=== PATIENT | female | born 1960 | race Caucasian/White ===

== ENCOUNTER 2016-12-09 00:45 | Inpatient (IN) | payer MEDICARE, MEDICAID ==
[2016-12-09 01:16] VITALS: BMI 30.2
--- NOTE | 2016-12-09 01:31 | ED PDOC ---
Arrival/HPI - General Chief Complaint: Flu-like Symptoms Time Seen by Provider: 12/09/16 01:23 Historian: Patient - History of Present Illness Narrative History of Present Illness (Text): 12/09/16 01:31 Jessica Cerrato is a 56 year old female, whose past medical history includes hypertension, hyperlipidemia, asthma, diabetes, seizures, and hepatic cirrhosis , who presents to the Emergency department complaining of fever since yesterday. Patient states yesterday she began coughing with generalized malaise and diffuse body aches. Patient states she had took her temperature at home and noted a fever of 100.8. Patient states she took Tylenol at home but denies any significant relief. Patient denies any chest pain, nausea, vomiting, diarrhea, urinary symptoms, back pain, neck pain, headache, dizziness, or any other complaints. PMD: Dr. Radha Starkey Time/Duration: Other (yesterday) Symptom Onset: Gradual Symptom Course: Unchanged Activities at Onset: Rest, Light Context: Home Past Medical History - Provider Review Nursing Documentation Reviewed: Yes - Cardiac Hx Hypertension: Yes - Pulmonary Hx Asthma: Yes - Neurological Hx Seizures: Yes - HEENT Hx HEENT Disorder: Yes (wears glasses) - Endocrine/Metabolic Hx Diabetes Mellitus Type 2: Yes - Hematological/Oncological Hx Cirrhosis: Yes (1976) Hx Hepatitis C: Yes (from blood transfusion x4 1976) Other/Comment: in 1976 appendix burst causing peritonitis, pt received 4 blood transfusions and developed hepatitis c from the blood, which caused cirrhosis - Musculoskeletal/Rheumatological Hx Falls: No - Gastrointestinal Hx Pancreatitis: Yes (2 yrs ago) - Psychiatric Hx Anxiety: Yes Hx Depression: Yes Hx Substance Use: No - Surgical History Hx Appendectomy: Yes (1976) Hx Cholecystectomy: Yes (1979) Other/Comment: 1982 1/2 fallopian tube removed and 1 ovary - Anesthesia Hx Anesthesia: Yes Hx Anesthesia Reactions: No Hx Malignant Hyperthermia: No - Suicidal Assessment Feels Threatened In Home Enviroment: No Family/Social History - Physician Review Nursing Documentation Reviewed: Yes Family/Social History: No Known Family HX Smoking Status: Never Smoked Hx Alcohol Use: No Hx Substance Use: No Hx Substance Use Treatment: No Allergies/Home Meds Allergies/Adverse Reactions: Allergies aspirin Allergy (Verified 12/09/16 01:17) ANAPHYLAXIS prochlorperazine [From Compazine] Allergy (Verified 12/09/16 01:17) ANAPHYLAXIS Home Medications: Home Meds Medication Instructions Recorded Confirmed LORazepam [Ativan] 0.5 mg PO PRN PRN 10/23/14 12/09/16 Lactobacillus Acidophilus [Bacid 1 cap PO DAILY 10/23/14 12/09/16 Acidophilus] Lisinopril [Lisinopril] 5 mg PO DAILY 10/23/14 12/09/16 Montelukast Sodium [Singulair] 10 mg PO DAILY 10/23/14 12/09/16 Morphine Patch 10/23/14 10/23/14 Omeprazole [PrilOSEC] 40 mg PO DAILY 10/23/14 12/09/16 Oxycodone HCl/Acetaminophen 1 tab PO Q6H PRN 10/23/14 12/09/16 [Percocet 325 mg-5 mg] Spironolactone [Aldactone] 12.5 mg PO DAILY 10/23/14 12/09/16 amLODIPine [Norvasc] 5 mg PO DAILY 10/23/14 12/09/16 Review of Systems - Physician Review All systems were reviewed & negative as marked: Yes - Review of Systems Constitutional: Fevers Eyes: Normal ENT: Normal Respiratory: Cough Cardiovascular: Normal. absent: Chest Pain Gastrointestinal: Normal. absent: Abdominal Pain, Diarrhea, Nausea, Vomiting Genitourinary Female: Normal. absent: Dysuria, Frequency, Hematuria, Urine Output Changes Musculoskeletal: Normal. absent: Back Pain, Neck Pain Skin: Normal. absent: Rash Neurological: Normal. absent: Headache, Dizziness Endocrine: Normal Hemo/Lymphatic: Normal Psychiatric: Normal Physical Exam Vital Signs Reviewed: Yes Vital Signs Temp Pulse Resp BP Pulse Ox 12/09/16 05:57 98.8 F 91 H 18 124/82 95 12/09/16 04:00 89 18 131/58 L 95 12/09/16 01:21 100.2 F H 92 H 16 140/81 95 Temperature: Febrile Blood Pressure: Normal Pulse: Regular Respiratory Rate: Normal Appearance: Positive for: Well-Appearing, Non-Toxic, Comfortable Pain Distress: None Mental Status: Positive for: Alert and Oriented X 3 - Systems Exam Head: Present: Atraumatic, Normocephalic Pupils: Present: PERRL Extroacular Muscles: Present: EOMI Conjunctiva: Present: Normal Mouth: Present: Moist Mucous Membranes Neck: Present: Normal Range of Motion Respiratory/Chest: Present: Wheezes. No: Respiratory Distress, Accessory Muscle Use Cardiovascular: Present: Regular Rate and Rhythm, Normal S1, S2. No: Murmurs Abdomen: Present: Normal Bowel Sounds. No: Tenderness, Distention, Peritoneal Signs Back: Present: Normal Inspection Upper Extremity: Present: Normal Inspection. No: Cyanosis, Edema Lower Extremity: Present: Normal Inspection. No: Edema Neurological: Present: GCS=15, CN II-XII Intact, Speech Normal Skin: Present: Warm, Dry, Normal Color. No: Rashes Psychiatric: Present: Alert, Oriented x 3, Normal Insight, Normal Concentration Medical Decision Making ED Course and Treatment: 12/09/16 01:31 Impression: 56 year old female complaining of fever, cough, generalized malaise, and body aches. Differential Diagnosis include but are not limited to: asthmatic bronchitis Plan: -- EKG -- Chest X-ray -- Labs, cardiac enzymes, BNP, VBG, blood cultures -- Urinalysis -- Duoneb -- Reassess and disposition Prior Visits: Notes and results from previous visits were reviewed. Progress Notes: Reviewed EKG, NSR at [address]-segment elevations or depressions, no T-wave inversions, normal intervals. 12/09/16 01:45 Reviewed radiology, Chest X-ray shows no active disease. 12/09/16 04:[address] Ndiaye, covering for Dr. Starkey, who is aware and agrees with plan. Pt will go to Telemetry observation for asthmatic bronchitis under Dr. Starkey's service. Pt is no acute distress. Discussed results and hospital observation plan with pt , who is aware and verbalizes understanding. - Lab Interpretations Lab Results: 12/09/16 02:16 12/09/16 02:16 Lab Results 12/09/16 11:07: POC Glucose (mg/dL) 326 H 12/09/16 07:24: POC Glucose (mg/dL) 151 H 12/09/16 02:16: Urine Color Yellow, Urine Appearance Clear, Urine pH 6.0, Ur Specific [place] 1.020, Urine Protein Negative, Urine Glucose (UA) Negative, Urine Ketones Negative, Urine Blood Trace-intact H, Urine Nitrate Negative, Urine Bilirubin Negative, Urine Urobilinogen 0.2, Ur Leukocyte Esterase Negative , Urine RBC 1 - 3, Urine WBC 0 - 2, Ur Epithelial Cells 0 - 2, Urine Bacteria Mod 12/09/16 02:16: Sodium 134, Chloride 99, Potassium 4.6, Carbon Dioxide 26, Anion Gap 14, BUN 20, Creatinine 0.9, Est GFR ( Amer) > 60, Est GFR (Non- Af Amer) > 60, Random Glucose 193 H, Calcium 8.6, Total Bilirubin 2.2 H, AST 34 , ALT 40, Alkaline Phosphatase 97, Lactate Dehydrogenase 390, Total Creatine Kinase 42, Troponin I < 0.01, NT-Pro-B Natriuret Pep 69.0, Total Protein 8.1, Albumin 3.5, Globulin 4.6, Albumin/Globulin Ratio 0.8 L 12/09/16 02:16: pO2 187 H, VBG pH 7.40, VBG pCO2 43.0, VBG HCO3 26.6, VBG Total CO2 27.9, VBG O2 Sat (Calc) 99.8 H, VBG Base Excess 1.5, VBG Potassium 4.5, Sodium 132.0, Chloride 104.0, Glucose 199 H, Lactate 1.4, FiO2 21.0, Venous Blood Potassium 4.5 12/09/16 02:16: WBC 11.4 H D, RBC 4.62, Hgb 10.3 L, Hct 31.6 L, MCV 68.4 L, MCH 22.3 L, MCHC 32.6, RDW 15.9 H, Plt Count 54 L, Manual Plt Count 71 L*, Neutrophils % (Manual) 82 H, Band Neutrophils % 4 H, Lymphocytes % (Manual) 9 L , Monocytes % (Manual) 4, Eosinophils % (Manual) 1, Platelet Evaluation Low I have reviewed the lab results: Yes - RAD Interpretation Radiology Orders: 12/09/16 01:37 CHEST PORTABLE [RAD] Stat - EKG Interpretation Interpreted by ED Physician: Yes Type: 12 lead EKG - Medication Orders Current Medication Orders: Acetaminophen (Tylenol 325mg Tab) 650 mg PO Q4H PRN PRN Reason: Fever >100.5 F Albuterol/Ipratropium (Duoneb 3 Mg/0.5 Mg (3 Ml) Ud) 3 ml IH Q4H PRN PRN Reason: Shortness of Breath Last Admin: 12/09/16 07:44 Dose: 3 ml Albuterol/Ipratropium (Duoneb 3 Mg/0.5 Mg (3 Ml) Ud) 3 ml IH TIDRESP [facility] Last Admin: 12/09/16 13:00 Dose: 3 ml Amlodipine Besylate (Norvasc) 5 mg PO DAILY [facility] Last Admin: 12/09/16 10:29 Dose: 5 mg Insulin Human Regular (Humulin R Low) 0 units SC ACHS ANGELIQUE PRN Reason: Protocol Last Admin: 12/09/16 16:37 Dose: 4 units Levofloxacin (Levaquin) 500 mg PO DAILY [facility] Lisinopril (Zestril) 5 mg PO DAILY [facility] Last Admin: 12/09/16 10:31 Dose: 5 mg Methylprednisolone (Solu-Medrol) 40 mg IVP Q12 [facility] Last Admin: 12/09/16 10:29 Dose: 40 mg Montelukast Sodium (Singulair) 10 mg PO DAILY [facility] Last Admin: 12/09/16 10:31 Dose: 10 mg Oxycodone/Acetaminophen (Percocet 5/325 Mg Tab) 1 tab PO Q6H PRN PRN Reason: Pain, severe (8-10) Stop: 12/12/16 08:42 Spironolactone (Aldactone) 12.5 mg PO DAILY [facility] Last Admin: 12/09/16 10:30 Dose: 12.5 mg Discontinued Medications Acetaminophen (Tylenol 325mg Tab) 650 mg PO STAT STA Stop: 12/09/16 04:34 Last Admin: 12/09/16 05:25 Dose: 650 mg Albuterol/Ipratropium (Duoneb 3 Mg/0.5 Mg (3 Ml) Ud) 3 ml IH Q15M ANGELIQUE Stop: 12/09/16 02:16 Last Admin: 12/09/16 02:35 Dose: 3 ml Levofloxacin/Dextrose (Levaquin 750mg) 750 mg in 150 mls @ 100 mls/hr IVPB STAT STA Stop: 12/09/16 05:35 Last Admin: 12/09/16 04:32 Dose: 100 mls/hr Methylprednisolone (Solu-Medrol) 125 mg IVP ONCE ONE Stop: 12/09/16 04:34 Last Admin: 12/09/16 05:25 Dose: 125 mg - Scribe Statement The provider has reviewed the documentation as recorded by the Padmini Hernandez Provider Attestation: All medical record entries made by the Padmini were at my direction and personally dictated by me. I have reviewed the chart and agree that the record accurately reflects my personal performance of the history, physical exam, medical decision making, and the department course for this patient. I have also personally directed, reviewed, and agree with the discharge instructions and disposition. Disposition/Present on Arrival - Present on Arrival Any Indicators Present on Arrival: No History of DVT/PE: No History of Uncontrolled Diabetes: Yes Urinary Catheter: No History of Decub. Ulcer: No History Surgical Site Infection Following: None - Disposition Have Diagnosis and Disposition been Completed?: Yes Diagnosis: Asthmatic bronchitis Disposition: HOSPITALIZED Disposition Time: 04:10 Condition: GOOD
[2016-12-09] MEDS: Albuterol-Ipratrop 3 mg / 0.5 (3 ml) UD IH SCH ×5 (02:16→20:23)
[2016-12-09 02:36] LABS: VENOUS BLOOD GAS BASE EXCESS 1.5 mmol/L (0.0-2.0)
[2016-12-09 02:40] LABS: URINE BILIRUBIN NEGATIVE (NEGATIVE); URINE BLOOD TRACE-INTACT (NEGATIVE); URINE GLUCOSE (UA) NEGATIVE (NEGATIVE); URINE KETONE NEGATIVE (NEGATIVE); URINE LEUKOCYTE ESTERASE NEGATIVE Leu/uL (NEGATIVE); URINE PROTEIN NEGATIVE mg/dL (<30 mg/dL); URINE UROBILINOGEN 0.2 E.U./dL (<1 E.U./dL)
[2016-12-09 02:43] LABS: ALB/GLOB RATIO 0.8 (1.1-1.8); ALKALINE PHOSPHATASE 97 U/L (38-133); ALT/SGPT 40 U/L (7-56); AST/SGOT 34 U/L (15-39); BILIRUBIN,TOTAL 2.2 mg/dL (0.2-1.3); BLOOD UREA NITROGEN 20 mg/dL (7-21); CALCIUM 8.6 mg/dL (8.4-10.5); CARBON DIOXIDE 26 mmol/L (21-33); CHLORIDE 99 mmol/L (98-107); GFR AFRICAN-AMERICAN > 60; GLUCOSE,RANDOM 193 mg/dL (70-110); POTASSIUM 4.6 mmol/L (3.6-5.0); SODIUM 134 mmol/L (132-148); TOTAL PROTEIN 8.1 g/dL (5.8-8.3)
[2016-12-09 02:44] LABS: URINE APPEARANCE CLEAR (CLEAR); URINE COLOR YELLOW (YELLOW)
[2016-12-09 02:46] LABS: HEMATOCRIT 31.6 % (36.0-48.0); MEAN CELL VOLUME 68.4 fL (80.0-105.0); MEAN CORPUSCULAR HEMOGLOBIN 22.3 pg (25.0-35.0); MEAN CORPUSCULAR HGB CONC 32.6 g/dl (31.0-37.0); PLATELET COUNT 54 10^3/uL (120.0-450.0); RED CELL DISTRIBUTION WIDTH 15.9 % (11.5-14.5); WHITE BLOOD COUNT 11.4 10^3/ul (4.5-11.0)
[2016-12-09 02:50] LABS: ADD MANUAL DIFF? YES
[2016-12-09 02:55] LABS: TROPONIN I < 0.01 ng/mL
[2016-12-09 03:03] LABS: URINE BACTERIA MOD (NEG); URINE EPITHELIAL CELLS 0 - 2 /hpf (0-5); URINE WBC 0 - 2 /hpf (0-6)
[2016-12-09 03:49] LABS: BAND 4 % (0-2); EOSINOPHIL 1 % (0.0-3.0); NEUTROPHIL 82 % (50.0-70.0); PLATELET ESTIMATE LOW (NORMAL)
[2016-12-09] MEDS ORDERED: levoFLOXacin 750 mg in D5W 750 MG/150 ML BAG IVPB STA (04:06)
[2016-12-09] MEDS ORDERED: Albuterol-Ipratrop 3 mg / 0.5 (3 ml) UD IH PRN (06:05)
[2016-12-09] MEDS: Insulin Reg-LOW-Coverage SC SCH ×4 (08:23→21:47)
[2016-12-09] MEDS ORDERED: Oxycodone/Acetaminophen 5/325 mg Tab PO PRN (08:41)
[2016-12-09] MEDS: MethylPREDNISolone 40 mg Vial IVP SCH ×2 (10:29→21:47)
--- NOTE | 2016-12-09 15:07 | RAD ---
HISTORY: sob COMPARISON: Comparison chest 10/23/2014 FINDINGS: LUNGS: Poor inspiration with low lung volumes, mild crowded bronchovascular markings and mild bibasilar atelectasis. PLEURA: No significant pleural effusion identified, no pneumothorax apparent. CARDIOVASCULAR: Normal. OSSEOUS STRUCTURES: No significant abnormalities. VISUALIZED UPPER ABDOMEN: Normal. OTHER FINDINGS: None. IMPRESSION: Poor inspiration with low lung volumes, mild crowded bronchovascular markings and mild bibasilar atelectasis.
--- NOTE | 2016-12-09 19:31 | HP ---
CHIEF COMPLAINT AND HISTORY OF PRESENT ILLNESS: This is a 56-year-old female who is coming into the hospital because of cough and congestion. She was having shortness of breath. She says she is havin g difficulty breathing even though she is using her nebulizer treatments. She has a past medical his tory of hypertension, dyslipidemia, diabetes type 2, seizure disorder, hepatic cirrhosis. The patien t was complaining of fevers that started yesterday. She said that at home, her temperature was 100.8 . She is taking Tylenol. She denies any abdominal pain, no back pain, no dysuria, frequency, or noc turia. No weakness in the arms or the legs. REVIEW OF SYSTEMS: All other review of symptoms are within normal limits except as mentioned. ALLERGIES: ASPIRIN AND PROCHLORPERAZINE. HOME MEDICATIONS: Ativan, lactobacillus, lisinopril, Singulair, morphine, Prilosec, Percocet, Aldact one, amlodipine. PAST MEDICAL HISTORY: 1. Cirrhosis. 2. Hepatitis C. 3. Pancreatitis. 4. Anxiety. 5. Depression. 6. Dyslipidemia. 7. Hypertension. PAST SURGICAL HISTORY: 1. Ovary removal in 1982. 2. Cholecystectomy in 1979. 3. Appendectomy in 1976. SOCIAL HISTORY: She is single, lives with her family. FAMILY HISTORY: Noncontributory. PHYSICAL EXAMINATION: VITAL SIGNS: She has a temperature of 99, pulse of 94, blood pressure is 146/74, respiration is 20, O2 saturation 98%, height is 5 feet 1 inch, weight is 160 pounds, BMI is 30.2. GENERAL: Patient lying in bed, flat, and in no apparent distress. HEAD AND NECK EXAM: Atraumatic, normocephalic. Conjunctivae are pink. Throat clear and mouth with moist mucosa. Oropharynx benign. EYES: Extraocular movements are intact. PERRLA. NECK: Supple. No JVD, thyromegaly, or adenopathy. No bruits. HEART: S1 and S2 regular rate and rhythm. No murmurs, rubs, or gallops. LUNGS: Good bilateral air entry. Mild bilateral wheezing. No rales or rhonchi. ABDOMEN: Soft, nontender, nondistended. Bowel sounds are positive in all quadrants. No rebound. No hepatosplenomegaly. EXTREMITIES: No cyanosis, clubbing, or edema. NEURO: No facial asymmetry, tongue is midline, no uvula deviation. Power is 5/5 in upper extremity and 5/5 in lower extremity. Sensation is normal in upper extremity and lower extremity. PSYCH: Awake, alert, oriented x3. No anxiety or depression symptoms. Good insight. Normal affec t. : No CVA tenderness VASCULAR: 2+ pulses in carotid and pedal pulses. SKIN: No erythema or abnormal nodules noted. SPINE: Normal curvature. LYMPHADENOPATHY: No anterior cervical or posterior cervical adenopathy. No inguinal adenopathy. LABORATORY DATA: White count is 11.4, hemoglobin is 10.3, platelet count is 54. ABG shows a pH of 7.4, pCO2 is 43, bicarb is 26. Urine shows protein is negative, glucose is negative. Chest x-ray showed poor inspiration with low lung volumes, bibasilar atelectasis. EKG shows sinus rhythm at 91, no ST-T changes. ASSESSMENT: 1. Acute chronic obstructive pulmonary disease exacerbation. 2. Bronchitis. 3. Hypertension. 4. Dyslipidemia. 5. Chronic obstructive pulmonary disease. 6. Anxiety. 7. Hepatitis C. 8. Cirrhosis. 9. Chronic thrombocytopenia. PLAN: The patient is going to be admitted to the hospital. She is short of breath. She is going to be getting nebulizer treatments. She has been started on antibiotics with Levaquin. She is going t o be on steroids. The patient is on lisinopril for hypertension and is going to be on Tylenol as nee ded. She is on a carbohydrate consistent diet. I did speak to the patient's . Eran Ndiaye MD cc: [phone] TT: 12/09/2016 19:30:42 wy
--- NOTE | 2016-12-09 22:09 | CARD ---
APPROVED REPORT EKG Measurement Heart [id number] <Conclusion> Normal sinus rhythm Normal ECG
[2016-12-10] MEDS: Albuterol-Ipratrop 3 mg / 0.5 (3 ml) UD IH SCH ×3 (08:03→20:16)
[2016-12-10] MEDS: Insulin Reg-LOW-Coverage SC SCH ×4 (08:18→21:43)
[2016-12-10 08:32] LABS: HEMATOCRIT 30.5 % (36.0-48.0); MEAN CELL VOLUME 67.3 fL (80.0-105.0); MEAN CORPUSCULAR HEMOGLOBIN 22.3 pg (25.0-35.0); MEAN CORPUSCULAR HGB CONC 33.1 g/dl (31.0-37.0); PLATELET COUNT 46 10^3/uL (120.0-450.0); RED CELL DISTRIBUTION WIDTH 15.6 % (11.5-14.5)
[2016-12-10 08:40] LABS: ALB/GLOB RATIO 0.7 (1.1-1.8); ALKALINE PHOSPHATASE 95 U/L (38-133); ALT/SGPT 35 U/L (7-56); AST/SGOT 27 U/L (15-39); BILIRUBIN,TOTAL 1.1 mg/dL (0.2-1.3); BLOOD UREA NITROGEN 37 mg/dL (7-21); CALCIUM 8.4 mg/dL (8.4-10.5); CARBON DIOXIDE 25 mmol/L (21-33); CHLORIDE 94 mmol/L (98-107); GFR AFRICAN-AMERICAN > 60; POTASSIUM 4.9 mmol/L (3.6-5.0); SODIUM 128 mmol/L (132-148)
[2016-12-10 08:45] LABS: GLUCOSE,RANDOM 383 mg/dL (70-110)
[2016-12-10] MEDS: MethylPREDNISolone 40 mg Vial IVP SCH ×2 (10:08→21:29)
[2016-12-10] MEDS: levoFLOXacin 500 MG TAB PO SCH (10:09)
--- NOTE | 2016-12-10 12:59 | PN ---
DATE: 12/10/2016 SUBJECTIVE: The patient is a 56-year-old, seen and examined sitting in chair. She states for almost a week she is having cough, congestion and unable to catch breath, feeling funny in the chest. She was initially admitted in ICU, was on IV steroids and nebulizer treatment, doing well, and transferre d to TCU for further management. PAST MEDICAL HISTORY: Significant for: 1. Cirrhosis of liver. 2. Hepatitis C. 3. Pancreatitis. 4. Hypertension. 5. Hyperlipidemia. PHYSICAL EXAMINATION: GENERAL: She is awake and alert, communicative, mild shortness of breath. VITAL SIGNS: Afebrile, pulse 79, respirations 18, blood pressure 128/64. LUNGS: Bilateral fair airflow. No rhonchi or crackle except a few expiratory rhonchi; no other etio logy seen. HEART: S1, S2 audible. ABDOMEN: Soft, nontender, no rebound, no guarding. NEUROLOGIC: The patient is awake and alert, communicative, ambulatory. EXTREMITIES: Bilateral legs, no edema. LABORATORY EXAMINATION: WBC is 10, hemoglobin 10.1, hematocrit 30.5, platelet of 46. Chemistry: So dium 128, potassium 4.9, chloride 94, CO2 of 25, BUN 37, creatinine 1.9, blood sugar of 430. Urinaly sis is unremarkable. Blood cultures are negative. X-ray of the chest shows poor inspiration with lo wer lung volumes, mild crowded bronchovascular marking in mid ____ area. ASSESSMENT: 1. Chronic obstructive pulmonary disease exacerbation. 2. Hepatitis C. 3. Cirrhosis of liver. 4. History of hypertension. 5. Insulin-dependent diabetes. PLAN: Currently, the patient is on Aldactone nebulizer treatment. She is on Levaquin. She is getti ng Norvasc. She is on IV steroid; will cut down on that. Continue nebulizer treatment. I will orde r for CT scan of the chest to receive further details of her lung parenchyma. Will reevaluate ryan hannah in the a.m. Matheus Starkey MD cc: [phone] TT: 12/10/2016 12:58:35 Confirmation # [id number] Dictation # [id number] mn
--- NOTE | 2016-12-10 14:31 | CT ---
PROCEDURE: CT Chest without contrast HISTORY: increased chest markings COMPARISON: None. TECHNIQUE: Contiguous axial images were obtained through the chest without intravenous contrast enhancement. Sagittal and coronal reconstructions were performed. Radiation dose (DLP): 660 mGy-cm. This CT exam was performed using one or more of the following dose reduction techniques: Automated exposure control, adjustment of the mA and/or kV according to patient size, and/or use of iterative reconstruction technique. FINDINGS: LUNGS: Ground-glass interstitial infiltrates are seen in both lung bases. There is no alveolar consolidation. There is no nodule or mass MEDIASTINUM: Unremarkable thoracic aorta. No aneurysm. Normal sized heart. Main pulmonary artery unremarkable. No vascular congestion. No lymphadenopathy. PLEURA: No pleural fluid. No pneumothorax. BONES: No fracture. No destructive lesion. UPPER ABDOMEN: Cirrhosis with splenomegaly OTHER FINDINGS: None. IMPRESSION: Minimal ground-glass interstitial infiltrates of both lung bases. Findings could represent interstitial pneumonia
[2016-12-11 07:39] LABS: HEMATOCRIT 29.8 % (36.0-48.0); MEAN CORPUSCULAR HEMOGLOBIN 21.8 pg (25.0-35.0); MEAN CORPUSCULAR HGB CONC 32.6 g/dl (31.0-37.0); PLATELET COUNT 56 10^3/uL (120.0-450.0); RED CELL DISTRIBUTION WIDTH 15.7 % (11.5-14.5); WHITE BLOOD COUNT 5.5 10^3/ul (4.5-11.0)
[2016-12-11 07:52] LABS: ALB/GLOB RATIO 0.7 (1.1-1.8); ALKALINE PHOSPHATASE 85 U/L (38-133); ALT/SGPT 34 U/L (7-56); AST/SGOT 23 U/L (15-39); BILIRUBIN,TOTAL 0.6 mg/dL (0.2-1.3); BLOOD UREA NITROGEN 39 mg/dL (7-21); CALCIUM 8.6 mg/dL (8.4-10.5); CARBON DIOXIDE 26 mmol/L (21-33); CHLORIDE 97 mmol/L (95-110); GFR AFRICAN-AMERICAN > 60; POTASSIUM 4.8 mmol/L (3.6-5.0); SODIUM 129 mmol/L (132-148); TOTAL PROTEIN 7.5 g/dL (5.8-8.3)
[2016-12-11 08:05] LABS: GLUCOSE,RANDOM 346 mg/dL (70-110)
[2016-12-11] MEDS: Albuterol-Ipratrop 3 mg / 0.5 (3 ml) UD IH SCH ×3 (08:18→19:36)
[2016-12-11] MEDS: Insulin Reg-LOW-Coverage SC SCH ×2 (08:27→12:26)
[2016-12-11] MEDS: levoFLOXacin 500 MG TAB PO SCH (09:53)
[2016-12-11] MEDS: cefTRIAXone 1 gm 1 GM/100 ML BAG IVPB SCH (09:54)
[2016-12-11] MEDS: MethylPREDNISolone 40 mg Vial IVP SCH ×2 (09:54→21:19)
[2016-12-11] MEDS ORDERED: Promethazine/Cod 6.25mg-10mg/5ml Syr UD PO PRN (12:35)
--- NOTE | 2016-12-11 12:48 | PN ---
DATE: 12/11/2016 The patient is 56 years old, seen and examined. She still has cough and congestion. States chest hu rts when she coughs a lot. Denies any nausea. No abdominal pain. PHYSICAL EXAMINATION: VITAL SIGNS: She is afebrile, pulse 79, respirations 20, blood pressure 117/63. LUNGS: Bilateral few expiratory rhonchi. HEART: S1, S2 audible. ABDOMEN: Soft, nontender, no rebound, no guarding. NEUROLOGIC: She is awake and alert, communicative. LABORATORY EXAMINATION: WBC is 5.5, hemoglobin 9.7, hematocrit 29, platelets of 56. Chemistry: Sod ium 129, potassium 4.8, chloride 97, CO2 of 26, BUN 39, creatinine 0.9, blood sugar of 342. Blood cu ltures are negative. CT scan of the chest shows minimal ground glass interstitial infiltrate of both lung bases consistent with interstitial pneumonia. ASSESSMENT AND PLAN: 1. History of hepatitis C. 2. Cirrhosis liver. 3. Bilateral basilar interstitial infiltrate. 4. Bronchospasm with asthmatic bronchitis. PLAN: The patient is currently on spironolactone, nebulizer treatment. Blood sugar is being monitor ed. I will start patient on Phenergan with codeine. I will discontinue Levaquin. Start her on Zith romax with Rocephin. Continue her on nebulizer treatment and I will request for TCU evaluation for s low taper down since she is diabetic. We will need to monitor her blood sugar while she is on predni sone and we will taper down prednisone according to patient's response. Since she still has bronchos pasm, she will benefit from going to TCU for close observation. Matheus Starkey MD cc: [phone] TT: 12/11/2016 12:47:40 Confirmation # [id number] Dictation # [id number] sn
[2016-12-11] MEDS: Insulin Reg-HIGH-Coverage SC SCH ×2 (19:52→21:19)
[2016-12-12] MEDS: Albuterol-Ipratrop 3 mg / 0.5 (3 ml) UD IH SCH ×2 (07:55→13:39)
[2016-12-12] MEDS: Insulin Reg-HIGH-Coverage SC SCH ×3 (08:27→17:53)
[2016-12-12] MEDS ORDERED: Azithromycin 500MG/NS 250ml 500 MG/250 ML BAG IVPB SCH (10:00)
[2016-12-12 10:16] VITALS: RESP 20
[2016-12-12] MEDS: cefTRIAXone 1 gm 1 GM/100 ML BAG IVPB SCH (11:05)
[2016-12-12] MEDS: MethylPREDNISolone 40 mg Vial IVP SCH (11:06)
[2016-12-12 19:33] VITALS: BP 134/70; PULSE 88; TEMP 98.6; O2SAT 98
[2016-12-12] MEDS ORDERED: Levalbuterol 1.25 MG/3 ML Inhal Soln UD IH SCH (20:00)
[2016-12-12] MEDS ORDERED: Insulin Lispro (HUMAlog) HIGH Coverage SC SCH (22:00)
--- NOTE | 2016-12-12 23:34 | DS ---
HISTORY OF PRESENT ILLNESS: The patient is a 56-year-old seen and examined. Still complaining of cou gh, congestion, wheezing on minimal exertion. PHYSICAL EXAMINATION: VITAL SIGNS: He is afebrile, pulse 70, respirations 20, and blood pressure 124/75. LUNGS: Bilateral, few expiratory rhonchi. HEART: S1, S2 audible. ABDOMEN: Soft, nontender, no rebound, no guarding. NEUROLOGIC: The patient is awake and alert, communicative, ambulatory. LABORATORY DATA: Blood sugar is 370. CT scan of the chest was done that shows bibasilar infiltrate. ASSESSMENT: 1. Chronic obstructive pulmonary disease exacerbation. 2. Bibasilar infiltrate. 3. Hepatitis C. 4. History of cirrhosis of liver. 5. Asthmatic bronchitis. 6. Anxiety disorder. PLAN: We will continue patient on spironolactone. The patient felt tremulous after taking DuoNeb. W ill change it to Xopenex. Continue her on amlodipine. She is on promethazine with codeine. Continu e her on Singulair, continue her on Rocephin and Zithromax, and check echocardiogram to see her LV fu nction. The patient might be transferred to TCU to complete her course of antibiotics and to monitor her closely and start her on fingerstick with coverage, start her on Protonix also and the patient w ill be transferred to TCU later on today. Matheus Starkey MD cc: [phone] TT: 12/12/2016 23:34:00 ln
[2016-12-13] MEDS ORDERED: Pantoprazole 40 mg EC Tab PO SCH (06:30)
== END 2016-12-12 18:44 | DRG 191 ==
LOC: ED 00:45 → ERH 04:33 → CCU 06:57 → 2RSO 13:35 → OBSVTOIN 16:11 → 3RSO 12-10 07:10
PROVIDERS: ADMIT Internal Medicine; ATTEND Internal Medicine
PROC: 3E0F7GC Introduction of Other Therapeutic Substance into Respiratory Tract, Via Natural or Artificial Opening (ICD-10-PCS; principal; 2016-12-09)
DX: J44.1 Chronic obstructive pulmonary disease with (acute) exacerbation (principal); D69.6 Thrombocytopenia, unspecified; K74.60 Unspecified cirrhosis of liver; I10 Essential (primary) hypertension; J45.909 Unspecified asthma, uncomplicated; E78.5 Hyperlipidemia, unspecified; E11.9 Type 2 diabetes mellitus without complications; G40.909 Epilepsy, unspecified, not intractable, without status epilepticus; K86.1 Other chronic pancreatitis; B19.20 Unspecified viral hepatitis C without hepatic coma; F41.9 Anxiety disorder, unspecified; R91.8 Other nonspecific abnormal finding of lung field; Z79.4 Long term (current) use of insulin; Z90.49 Acquired absence of other specified parts of digestive tract

== ENCOUNTER 2016-12-12 18:44 | Inpatient (IN) | payer OTHER, MEDICAID ==
[2016-12-12 21:02] VITALS: BMI 32.6
[2016-12-12] MEDS ORDERED: Albuterol-Ipratrop 3 mg / 0.5 (3 ml) UD IH PRN (21:07)
[2016-12-12] MEDS ORDERED: Promethazine/Cod 6.25mg-10mg/5ml Syr UD PO SCH (21:15)
[2016-12-12] MEDS ORDERED: Levalbuterol 1.25 MG/3 ML Inhal Soln UD IH PRN (21:16)
[2016-12-12] MEDS: Insulin Reg-HIGH-Coverage SC SCH (22:18)
[2016-12-13] MEDS: Promethazine/Cod 6.25mg-10mg/5ml Syr UD PO SCH ×5 (01:23→17:46)
[2016-12-13] MEDS: cefTRIAXone 1 gm 1 GM/100 ML BAG IVPB SCH (05:45)
[2016-12-13] MEDS: Azithromycin 500MG/NS 250ml 500 MG/250 ML BAG IVPB SCH (05:45)
[2016-12-13] MEDS: MethylPREDNISolone 40 mg Vial IVP SCH ×3 (06:43→18:05)
[2016-12-13] MEDS: Insulin Reg-HIGH-Coverage SC SCH ×4 (07:00→22:24)
[2016-12-13] MEDS: Albuterol-Ipratrop 3 mg / 0.5 (3 ml) UD IH SCH ×2 (07:20→13:55)
[2016-12-13] MEDS: Insulin Lispro (humaLOG) MIX 75/25(10 ml) SC SCH (18:11)
--- NOTE | 2016-12-13 19:25 | HP ---
HISTORY OF PRESENT ILLNESS: The patient is a 56-year-old who came to Emergency Room because of incre asing shortness of breath. She was having cough and congestion ongoing almost for a week. CT scan of the chest shows bilateral basilar pneumonia. Has been on IV antibiotic, nebulizer treatment. PAST MEDICAL HISTORY: 1. The patient has significant past medical history of hepatitis C. She was treated back home, but was unable to treat. She has Cirrhosis of liver. 2. Hypertension. 3. Hyperlipidemia. 4. Diet-controlled diabetes. ALLERGIES: SHE IS ALLERGIC TO ASPIRIN AND PROCHLORPERAZINE. MEDICATIONS AT HOME: She is on Bacid. She takes Ativan 0.5 t.i.d. p.r.n. She is on Singulair 10 mg daily, lisinopril 5 mg daily, omeprazole 40 mg daily, amlodipine 5 mg daily, Aldactone 12.5 mg daily , and Percocet as needed. SOCIAL HISTORY: She is single. Lives with her children. REVIEW OF SYSTEMS: Has generalized weakness, generalized tremor. Currently complaining of cough and congestion with chest pain on coughing and headache. PHYSICAL EXAMINATION: GENERAL: She is awake and alert, communicative. VITAL SIGNS: She is afebrile, pulse 70, respirations 18, blood pressure 105/62. LUNGS: Bilateral fair airflow, no rhonchi or crackle. HEART: S1, S2 audible. ABDOMEN: Soft, nontender, no rebound, no guarding. NEUROLOGIC: The patient is awake and alert, communicative. LABORATORY EXAM: Blood sugar is 486. ASSESSMENT: 1. Bibasilar pneumonia. 2. Chronic obstructive pulmonary disease. 3. Hypertension. 4. Hepatitis C. 5. Asthmatic bronchitis. PLAN: We will continue patient on Zithromax and Rocephin. We will give her IV steroids. Continue h er on Xopenex, analgesic as needed. We will follow up patient in a.m. Matheus Starkey MD cc: [phone] TT: 12/13/2016 19:25:20 yolie
[2016-12-13] MEDS: Levalbuterol 1.25 MG/3 ML Inhal Soln UD IH SCH (22:16)
[2016-12-14] MEDS: Promethazine/Cod 6.25mg-10mg/5ml Syr UD PO SCH ×4 (00:11→18:05)
[2016-12-14] MEDS: Levalbuterol 1.25 MG/3 ML Inhal Soln UD IH SCH ×4 (01:52→19:58)
[2016-12-14] MEDS: Azithromycin 500MG/NS 250ml 500 MG/250 ML BAG IVPB SCH (05:15)
[2016-12-14] MEDS: cefTRIAXone 1 gm 1 GM/100 ML BAG IVPB SCH (05:15)
[2016-12-14] MEDS: MethylPREDNISolone 40 mg Vial IVP SCH ×2 (05:16→18:02)
[2016-12-14] MEDS: Insulin Reg-HIGH-Coverage SC SCH ×4 (06:45→21:57)
[2016-12-14] MEDS: Insulin Lispro (humaLOG) MIX 75/25(10 ml) SC SCH ×2 (06:53→17:57)
[2016-12-14] MEDS ORDERED: Pantoprazole 40 mg EC Tab PO STA (14:33)
--- NOTE | 2016-12-14 14:48 | PN ---
DATE: 12/14/2016 The patient is a 56-year-old, seen and examined. She states her cough is better, but she complained of some epigastric discomfort and burning. No nausea, vomiting, no diarrhea. PHYSICAL EXAMINATION: VITAL SIGNS: She has temperature 99.8, pulse 77, respirations 20, blood pressure . LUNGS: Bilateral few expiratory rhonchi, more so on the back. HEART: S1, S2 audible. ABDOMEN: Soft, nontender, no rebound, no guarding. NEUROLOGIC: She is awake and alert, communicative. EXTREMITIES: Bilateral legs, no edema. LABORATORY EXAMINATION: Blood sugar is 313. ASSESSMENT: 1. Bilateral basilar infiltrate. 2. Hepatitis C. 3. History of cirrhotic ascites. 4. Cirrhosis of liver. 5. Asthmatic bronchitis. 6. Gastroesophageal reflux disease. PLAN: We will start her on Humalog. She is getting Lasix 40 IV daily. I will discontinue ibuprofen since patient has been refusing. Give her Tylenol as needed. Will start her on Protonix. Continue her on current antibiotic and nebulizer treatment. We will reevaluate in a.m. Matheus Starkey MD cc: [phone] TT: 12/14/2016 14:47:47 Confirmation # [id number] Dictation # [id number]
[2016-12-15] MEDS: Levalbuterol 1.25 MG/3 ML Inhal Soln UD IH SCH ×4 (01:09→21:25)
[2016-12-15] MEDS: Azithromycin 500MG/NS 250ml 500 MG/250 ML BAG IVPB SCH (05:22)
[2016-12-15] MEDS: cefTRIAXone 1 gm 1 GM/100 ML BAG IVPB SCH (05:22)
[2016-12-15] MEDS: Promethazine/Cod 6.25mg-10mg/5ml Syr UD PO SCH ×2 (06:06)
[2016-12-15] MEDS: MethylPREDNISolone 40 mg Vial IVP SCH ×2 (06:07→17:13)
[2016-12-15] MEDS: Pantoprazole 40 mg EC Tab PO SCH (06:07)
[2016-12-15] MEDS: Insulin Lispro (humaLOG) MIX 75/25(10 ml) SC SCH ×2 (06:38→17:08)
[2016-12-15] MEDS: Insulin Reg-HIGH-Coverage SC SCH ×4 (06:38→21:55)
[2016-12-15] MEDS ORDERED: Promethazine/Cod 6.25mg-10mg/5ml Syr UD PO PRN (11:54)
--- NOTE | 2016-12-15 12:10 | PN ---
DATE: 12/15/2016 SUBJECTIVE: The patient is a 56-year-old seen and examined, complained of retrosternal discomfort. Complained of epigastric discomfort. She states her cough is much better. PHYSICAL EXAMINATION: VITAL SIGNS: She is afebrile, pulse 62, respirations 18, blood pressure 123/57. LUNGS: Bilateral fair airflow, no rhonchi or crackle. Few expiratory rhonchi scattered posteriorly more pronounced. HEART: S1, S2 audible. ABDOMEN: Soft, no rebound, no guarding. NEUROLOGIC: She is awake and alert, communicative, ambulatory. EXTREMITIES: Bilateral leg + 1 edema. LABORATORY DATA: Blood sugar is 236. ASSESSMENT: 1. Bilateral basilar infiltrates, improving. 2. Asthmatic bronchitis. 3. Sternal chest discomfort, probably secondary to gastritis and gastroesophageal reflux disease. 4. Hepatitis C. 5. Mild ascites. 6. Anxiety disorder. PLAN: We will continue patient on spironolactone, Colace, and monitor her blood sugar. Continue her on Lasix. I will make her oxycodone p.r.n. Cardiology consult by Dr. Boucher and GI consult by Dr. Darnell has been requested. Matheus Starkey MD cc: [id number] TT: 12/15/2016 12:09:45 Confirmation # [id number] Dictation # [id number] jn
--- NOTE | 2016-12-15 18:44 | CON ---
DATE: 12/15/2016 The patient in room 304, bed 1. REASON FOR CONSULTATION: Chest pain, shortness of breath, hypertension. HISTORY OF PRESENT ILLNESS: The patient is a 56-year-old female who was admitted to the hospital wit h a cough and was found to have on CAT scan bilateral basilar pneumonia. The patient now getting epi sodes of sharp chest pain. She is also getting pain when she coughs heavy. The patient denies any h istory of exertional chest pain in the past. The patient known case of hypertension, hyperlipidemia, diabetes, hepatitis C, chronic obstructive pulmonary disease. She was told to have seizures and art hritis. PAST MEDICAL AND SURGICAL HISTORY: Positive for hepatitis C, hypertension, hyperlipidemia, diabetes mellitus, chronic obstructive pulmonary disease. The patient also had surgery for a ruptured appendi x in 1976. Had also cholecystectomy. She also had a benign growth removed from the intestine, also part of ovary and fallopian tube was removed for a benign growth. HOME MEDICATIONS: Included lisinopril 5 mg daily, omeprazole 40 mg p.o. daily, amlodipine 5 mg daily , Aldactone 12.5 mg daily, Singulair 10 mg daily. PERSONAL HISTORY: No history of smoking or drinking. The patient states that she got hepatitis C be cause she got a blood transfusion when she had surgery many years ago. ALLERGIES: THE PATIENT IS ALLERGIC TO ASPIRIN AND PROCHLORPERAZINE. FAMILY HISTORY: Positive for CAD. REVIEW OF SYSTEMS: All the systems were reviewed, positives mentioned in the history, others were ne gative. PHYSICAL EXAMINATION: VITAL SIGNS: Blood pressure 144/75, respirations 18, pulse 79, and temperature 98.5. HEENT: Head is normocephalic. Eyes: Pupils normal. Conjunctivae slightly pale. NECK: JVP low. LUNGS: The patient has a few rales and has wheezing sounds. CARDIOVASCULAR: S1, S2. ABDOMEN: Soft, nontender, no organomegaly. EXTREMITIES: No clubbing, no cyanosis. LABORATORY DATA: WBC 5.4, hemoglobin 9.7, hematocrit 29.8, platelets 56. Prothrombin time 13.2, INR 1.24, PTT 31.3. Random sugar 336. Sodium 129, potassium 4.8, BUN 39, creatinine 0.9. AST and ALT normal. Total protein and albumin normal. Chest x-ray: Increased bronchovascular markings. CT [address] showed bibasilar ground glass appearing infiltrates. EKG showed sinus rhythm. DIAGNOSES: Chest pain, atypical for cardiac reasons, probably related to her pneumonia and cough; ch ronic obstructive pulmonary disease, bibasilar pneumonia, hypertension, hepatitis C, asthmatic bronch itis, cirrhosis of liver, anemia and thrombocytopenia. PLAN: The patient's chest pain is atypical from cardiac origin, probably related to pneumonia and co ugh. Will do an echocardiogram. Will do IV Lexiscan stress test. Will check a lipid profile. The patient getting spironolactone 25 mg p.o. daily, DuoNeb hand nebulizer therapy, Lasix 40 mg IV daily, Rocephin 1 gram IV daily, Protonix 40 daily, Singulair 10 mg daily, Solu-Medrol 20 mg IV b.i.d., lis inopril 5 mg daily, azithromycin 500 mg IV daily. Will repeat SMA-7 in the morning. We will follow with you. Armando Boucher MD cc: [id number] TT: 12/15/2016 18:44:00 Confirmation # [id number] Dictation # [id number] dn
[2016-12-16] MEDS: Levalbuterol 1.25 MG/3 ML Inhal Soln UD IH SCH ×4 (03:10→21:20)
[2016-12-16] MEDS: cefTRIAXone 1 gm 1 GM/100 ML BAG IVPB SCH (05:22)
[2016-12-16] MEDS: Azithromycin 500MG/NS 250ml 500 MG/250 ML BAG IVPB SCH (05:22)
[2016-12-16] MEDS: MethylPREDNISolone 40 mg Vial IVP SCH ×2 (05:23→18:02)
[2016-12-16] MEDS: Insulin Lispro (humaLOG) MIX 75/25(10 ml) SC SCH ×3 (06:06→16:58)
[2016-12-16] MEDS: Insulin Reg-HIGH-Coverage SC SCH ×5 (06:07→21:42)
[2016-12-16] MEDS: Pantoprazole 40 mg EC Tab PO SCH (06:32)
[2016-12-16 08:16] LABS: BLOOD UREA NITROGEN 26 mg/dL (7-21); CARBON DIOXIDE 28 mmol/L (21-33); CHLORIDE 93 mmol/L (98-107); CHOLESTEROL 133 mg/dL (130-200); GFR AFRICAN-AMERICAN > 60; GLUCOSE,RANDOM 237 mg/dL (70-110); MAGNESIUM 1.7 mg/dL (1.7-2.2); PHOSPHOROUS 3.2 mg/dL (2.5-4.5); POTASSIUM 4.4 mmol/L (3.6-5.0); SODIUM 130 mmol/L (132-148)
--- NOTE | 2016-12-16 14:25 | PN ---
DATE: 12/16/2016 The patient is in room 304, bed 1. REASON FOR CONSULTATION: Chest pain, shortness of breath, hypertension. HISTORY OF PRESENT ILLNESS: The patient is a 56-year-old female admitted to hospital with cough, fou nd to have on CAT scan bilateral basilar pneumonia. The patient is now getting episodes of sharp dane st pain only when she coughs. The patient known case of hypertension, hyperlipidemia and diabetes, h epatitis C, chronic obstructive pulmonary disease, arthritis. The patient lying flat in bed without any respiratory distress. PHYSICAL EXAMINATION: VITAL SIGNS: Blood pressure 117/65, respirations 14, pulse 73, temperature 98.0. HEAD: Normocephalic. EYES: Pupils normal. Conjunctivae normal. NECK: JVP low. Carotid equal. THORAX: AP diameter normal. LUNGS: Expiratory wheezing. CARDIOVASCULAR: S1, S2. ABDOMEN: Soft, no tenderness, no organomegaly. EXTREMITIES: No clubbing, no cyanosis. LABORATORIES: Sodium 130, potassium 4.4, BUN 26, creatinine 0.8, glucose 237. TSH 0.07. DIAGNOSES: Chest pain, atypical, most likely pleuritic type of pain, only happens when she coughs, c hronic obstructive pulmonary disease, bibasilar pneumonia, hypertension, hepatitis C, asthmatic bronc hitis, cirrhosis of liver, anemia, thrombocytopenia. PLAN: The patient already getting IV Solu-Medrol, which is anti-inflammatory, so we will continue th at and continue antibiotics as ordered and patient also getting Lasix 40 IV daily along with spironol actone 25 mg p.o. daily, Rocephin 1 gram IV daily, Solu-Medrol 20 mg IV b.i.d., lisinopril 5 mg daily , azithromycin 500 mg daily. The patient's TSH is low, so we will repeat TSH and T3 and free T4 reji rrow morning. For cardiac evaluation, echo and IV Lexiscan stress test have been already ordered. Armando Boucher MD cc: [id number] TT: 12/16/2016 14:24:35 Confirmation # [id number] Dictation # [id number] en
--- NOTE | 2016-12-16 14:59 | US ---
HISTORY: PAIN COMPARISON: None. TECHNIQUE: Sonographic evaluation of the abdomen. FINDINGS: LIVER: Measures cm. Normal echogenicity of the liver parenchyma. No mass. No intrahepatic bile duct dilatation. GALLBLADDER: Cholecystectomy. COMMON BILE DUCT: Measures mm. No stones. No dilatation. PANCREAS: Unremarkable as visualized. No mass. No ductal dilatation. RIGHT KIDNEY: Measures cm. Normal echogenicity. No calculus, mass, or hydronephrosis. LEFT KIDNEY: Measures cm. Normal echogenicity. No calculus, mass, or hydronephrosis. SPLEEN: Multiple nonspecific echogenic foci within the spleen measuring up to 5 millimeters. AORTA: No aneurysmal dilatation. IVC: Unremarkable. OTHER FINDINGS: None. IMPRESSION: Cholecystectomy. Scattered echogenic foci in the spleen measuring up to 5 millimeters which are nonspecific in appearance.
--- NOTE | 2016-12-16 15:53 | PN ---
DATE: 12/16/2016 SUBJECTIVE: The patient is 56 years old, seen and examined. She states she is getting retrosternal discomfort and feels better after she drinks water. Otherwise, she is doing well. PHYSICAL EXAMINATION: GENERAL: She is awake and alert, communicative. VITAL SIGNS: She is afebrile, pulse 69, respirations 14, blood pressure 117/65. LUNGS: Bilateral fair airflow. No rhonchi or crackle. HEART: S1, S2 audible. ABDOMEN: Soft, nontender, no rebound, no guarding. NEUROLOGIC: She is awake and alert, communicative, ambulatory. LABORATORY DATA: Sodium 130, potassium 4.4, chloride 93, CO2 of 28, BUN 26, creatinine 0.8, blood gauthier gar of 237. ASSESSMENT AND PLAN: 1. Bilateral pneumonia, improving. 2. Peptic ulcer disease. 3. History of hepatitis C. 4. Probably cirrhosis of the liver. 5. Chest pain, rule out underlying coronary artery disease. PLAN: Will continue her current antibiotic. She is going to undergo abdominal sonogram and continue her on a small dose of steroids. Continue on Rocephin and Zithromax. She is scheduled to have echo cardiogram, possible stress test in the next day or [address] Darnell is planning to do endosco py. Matheus Starkey MD cc: [id number] TT: 12/16/2016 15:52:58 Confirmation # [id number] Dictation # [id number] dn
--- NOTE | 2016-12-16 21:09 | CON ---
DATE: 12/15/2016 This patient was seen and evaluated earlier. This 56-year-old patient with a past medical history of cirrhosis secondary to the hepatitis C was admitted initially with shortness of breath, cough and co ngestion. The patient was found to have bilateral bibasilar pneumonia. The patient was admitted to the TCU for IV antibiotic therapy and deconditioning. The patient was complaining of epigastric and lower chest pain. GI consultation was requested to evaluate this. OTHER MEDICAL HISTORY: Significant as above, cirrhosis secondary to hep C, she said she has been venkat ated and she is remission; history of hypertension, dyslipidemia, and diabetes, diet controlled. The patient remembers having an endoscopy and a colonoscopy many years ago. ALLERGIES: ALLERGIC TO ASPIRIN AND CHLORPROMAZINE. SOCIAL HISTORY: Denies smoking, alcohol. 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 REVIEW OF SYSTEMS: Positive as above. Other systems reviewed, negative. PHYSICAL EXAMINATION: GENERAL: The patient is lying on the bed, not in acute distress. VITAL SIGNS: Pulse 79, blood pressure is 144/75, respirations 14, O2 saturation is 99. HEENT: Atraumatic, anicteric. NECK: Supple. HEART: S1, S2 heard. LUNGS: Bilateral air entry present. ABDOMEN: Soft. There is tenderness present in the epigastric area. No rebound or guarding. NEUROLOGIC: Alert, oriented. LABORATORY DATA: No recent labs. The last one done was 12/11/2016. Hemoglobin 9.7, hematocrit 29. 8, WBC 5.5, platelets 56. IMPRESSION: This 56-year-old patient with cirrhosis of the liver secondary hepatitis C in remission is now admitted with abdominal pain, epigastric pain and lower chest pain. The patient has mild tend erness in the epigastric area. Differential diagnoses should include erosive esophagitis, peptic ulc er disease, hepatic lesion and also coronary artery disease, and cardiac etiology also should be cons idered. Would request the patient: 1. The patient has cirrhosis. Would consider hepatitis C PCR. 2. Hepatitis profile to evaluate the hep B status for possible vaccination if she is not immune 3. Will get alpha fetoproteins. 4. Ultrasound scan of the abdomen to further evaluate. The patient may benefit from endoscopy and c olonoscopy. In view of her age and cirrhosis of the liver, patient needs to be evaluated at the [facility] also. Thank you very much for allowing us to participate in the care of the patient. Will continue to clos beata follow up her care and suggest further management based on the clinical course. Ann Darnell MD cc: [id number] TT: 12/16/2016 21:07:58 Confirmation # [id number] Dictation # [id number] mn
[2016-12-17] MEDS: Levalbuterol 1.25 MG/3 ML Inhal Soln UD IH SCH ×4 (02:40→20:00)
[2016-12-17] MEDS: Azithromycin 500MG/NS 250ml 500 MG/250 ML BAG IVPB SCH (05:08)
[2016-12-17] MEDS: cefTRIAXone 1 gm 1 GM/100 ML BAG IVPB SCH (05:08)
[2016-12-17] MEDS: MethylPREDNISolone 40 mg Vial IVP SCH ×2 (05:09→17:18)
[2016-12-17] MEDS: Pantoprazole 40 mg EC Tab PO SCH ×2 (05:11→06:28)
[2016-12-17] MEDS: Insulin Lispro (humaLOG) MIX 75/25(10 ml) SC SCH ×2 (06:53→17:16)
[2016-12-17] MEDS: Insulin Reg-HIGH-Coverage SC SCH ×4 (06:54→21:51)
[2016-12-17 07:27] LABS: FREE T4 1.13 ng/dL (0.78-2.19)
[2016-12-17 07:41] LABS: T3 0.65 ng/mL (0.97-1.69); THYROID STIMULATING HORMONE 0.1 mIU/mL (0.46-4.68)
--- NOTE | 2016-12-17 12:26 | PN ---
DATE: 12/17/2016 The patient in room 304, bed 1. REASON FOR CONSULTATION AND FOLLOWUP: Chest pain, shortness of breath, hypertension. HISTORY OF PRESENT ILLNESS: The patient is a 56-year-old female, was admitted with a cough and short ness of breath. She has known COPD and she was also found to have bibasilar pneumonia. The patient states that whenever she coughs, she gets chest pain. The patient known case of diabetes, hepatitis C, arthritis. The patient sitting in chair without any respiratory distress. PHYSICAL EXAMINATION: VITAL SIGNS: Blood pressure 136/82, respirations 18, pulse 75, temperature 98.7. HEAD: Normocephalic. EYES: Pupils normal. Conjunctivae normal. NOSE AND THROAT: Normal. NECK: JVP low. Carotid equal. THORAX: AP diameter normal. LUNGS: Few expiratory wheezing. CARDIOVASCULAR: S1, S2. No rub. No click. ABDOMEN: Soft, no tenderness, no organomegaly. EXTREMITIES: No clubbing, no cyanosis, no edema. Sodium 130, potassium 4.4, BUN 26, creatinine 0.8, calcium 9.0, phosphorus 3.2, magnesium 1.7. Trigl yceride , cholesterol 133, LDL 69, HDL 41. T3 0.65, which is low. Free T4 1.13, which is bhupinder l. TSH 0.10, which is low. DIAGNOSES: Chest pain, atypical, most likely pleuritic type of pain, only it occurs when she coughs, chronic obstructive pulmonary disease, bibasilar pneumonia, hypertension, hepatitis C, asthmatic bro nchitis, cirrhosis of liver, anemia and thrombocytopenia. PLAN: The patient is going to have an echo and stress test today to evaluate her cardiac status. Jamarcus arshad is getting spironolactone 25 p.o. daily. We will discontinue IV Lasix. The patient on Protonix 40 daily, Rocephin 1 gram IV daily, Singulair 10 mg daily, Solu-Medrol 20 mg IV b.i.d., lisinopril 5 mg daily, azithromycin 500 mg IV daily. We will follow echo and stress test which is being done today. Armando Boucher MD cc: [phone] TT: 12/17/2016 12:25:14 Confirmation # [id number] Dictation # [id number] en
--- NOTE | 2016-12-17 13:01 | PN ---
DATE: 12/17/2016 The patient is a 56-year-old, seen and examined while she was in stress lab. Denies any chest pain. 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 Otherwise, she is feeling fine. Scanty cough here and there. PHYSICAL EXAMINATION: VITAL SIGNS: She is afebrile, pulse 75, respirations 18, blood pressure 136/82. LUNGS: Bilateral fair airflow, no rhonchi or crackle. HEART: S1, S2 audible. ABDOMEN: Soft, nontender, no rebound, no guarding. NEUROLOGIC: The patient is awake and alert, able to communicate, ambulatory. LABORATORY EXAMINATION: Her blood sugar is 190. Her T3 is 0.65. TSH is 0.10. ASSESSMENT: 1. Bilateral basal infiltrates, improving. 2. History of hepatitis C. 3. Cirrhosis of liver. 4. Intermittent chest pain. 5. Steroid-induced hyperglycemia. PLAN: I will renew Rocephin to complete her course of 7-10 days. Continue her on Solu-Medrol and meliza messer is getting stress test that we will follow and the patient is scheduled to be discharged on Sat. Matheus Starkey MD cc: [id number] TT: 12/17/2016 13:00:58 Confirmation # [id number] Dictation # [id number] en
--- NOTE | 2016-12-17 21:19 | PN ---
DATE: 12/17/2016 SUBJECTIVE: This patient was seen and evaluated today. The patient was in the stress test the whole day. She was reluctant to have the upper GI endoscopy done. The patient does still have some discomfort in the epigastric area. PHYSICAL EXAMINATION: VITAL SIGNS: She is afebrile. Blood pressure is 136/82, pulse 75, respirations 18. HEENT: Atraumatic, anicteric. NECK: Supple. HEART: S1, S2 heard. LUNGS: Bilateral air entry present. ABDOMEN: Soft. There is mild tenderness present in the epigastric area. NEUROLOGIC: Alert, oriented and moves all the extremities. LABORATORY DATA: Hemoglobin 9.7, hematocrit 29.8, platelets 56. WBC 5.5 . Chemistries done yesterday were unremarkable. IMPRESSION/PLAN: This is a 56-year-old patient with cirrhosis secondary to hepatitis C, status post treatment for hepatitis C in remission. As per the patient, has epigastric pain. Etiology unclear. The patient did have a stress test done today. The patient would benefit from upper GI endoscopy. We will repeat labs today. If the patient is agreeable, we will schedule the endoscopy tomorrow. At the present time, the patient is reluctant to have the procedure. We will keep the patient on a clear liquid diet. If agreeable tomorrow, will schedule for endoscopy. Ann Darnell MD cc: [id number] TT: 12/17/2016 21:18:48 Confirmation # [id number] Dictation # [id number] ln [email or web address]
[2016-12-18] MEDS: Levalbuterol 1.25 MG/3 ML Inhal Soln UD IH SCH ×4 (02:07→19:15)
[2016-12-18] MEDS: cefTRIAXone 1 gm 1 GM/100 ML BAG IVPB SCH (05:01)
[2016-12-18] MEDS: MethylPREDNISolone 40 mg Vial IVP SCH ×2 (06:17→17:45)
[2016-12-18] MEDS: Pantoprazole 40 mg EC Tab PO SCH (06:17)
[2016-12-18] MEDS: Azithromycin 500MG/NS 250ml 500 MG/250 ML BAG IVPB SCH (06:17)
[2016-12-18] MEDS: Insulin Reg-HIGH-Coverage SC SCH ×4 (06:32→22:48)
[2016-12-18] MEDS: Insulin Lispro (humaLOG) MIX 75/25(10 ml) SC SCH ×2 (06:43→17:36)
[2016-12-18 07:15] LABS: HEMATOCRIT 34.3 % (36.0-48.0); MEAN CELL VOLUME 66.7 fL (80.0-105.0); MEAN CORPUSCULAR HGB CONC 32.9 g/dl (31.0-37.0); PLATELET COUNT 79 10^3/uL (120.0-450.0); RED CELL DISTRIBUTION WIDTH 15.8 % (11.5-14.5); WHITE BLOOD COUNT 11.8 10^3/ul (4.5-11.0)
[2016-12-18 07:17] LABS: INR 1.45 (0.93-1.08)
[2016-12-18 07:39] LABS: ALB/GLOB RATIO 0.8 (1.1-1.8); ALKALINE PHOSPHATASE 76 U/L (38-133); ALT/SGPT 59 U/L (7-56); AST/SGOT 23 U/L (15-39); BILIRUBIN,TOTAL 0.8 mg/dL (0.2-1.3); BLOOD UREA NITROGEN 30 mg/dL (7-21); CALCIUM 8.5 mg/dL (8.4-10.5); CARBON DIOXIDE 30 mmol/L (21-33); CHLORIDE 94 mmol/L (95-110); GFR AFRICAN-AMERICAN > 60; GLUCOSE,RANDOM 263 mg/dL (70-110); POTASSIUM 4.4 mmol/L (3.6-5.0); SODIUM 130 mmol/L (132-148); TOTAL PROTEIN 7.1 g/dL (5.8-8.3)
--- NOTE | 2016-12-18 11:16 | PN ---
DATE: 12/18/2016 REASON FOR CONSULTATION AND FOLLOWUP: Chest pain, shortness of breath, hypertension. BRIEF CLINICAL HISTORY: A 56-year-old female admitted with cough, shortness of breath, known COPD fo und to have cough, shortness of breath, COPD, bibasilar pneumonia. Yesterday, the patient underwent echo and a stress test. Denies any chest pain, shortness of breath, or any palpitation. PHYSICAL EXAMINATION: VITAL SIGNS: Temperature afebrile, heart rate ____, blood pressure ____. HEENT: PERRLA. Extraocular muscles intact. NECK: Supple. No carotid bruits. No thyromegaly. CHEST: Clear to auscultation. HEART: S1, S2 regular. ABDOMEN: Soft. EXTREMITIES: Clubbing and cyanosis negative. LABORATORY DATA: Blood workup as follows: WBC 11.8, hemoglobin 11, hematocrit 34.3, platelet count 79. Chemistry shows sodium 130, potassium 4.4, chloride 94, carbon dioxide 30, anion gap of 10. BUN 30, creatinine 0.7. TSH 0.10. Stress test shows essentially normal myocardial perfusion study, ejection fraction 82%. The patient had echocardiography also done yesterday that showed normal chamber size, ejection fracti on ____%, mild MR, mild TR, RV systolic pressure 28. IMPRESSION: Chest pain, atypical, most likely pleuritic in nature, cough, chronic obstructive pulmon fani disease, bronchitis, bibasilar pneumonia, hypertension, hepatitis C, cirrhosis of the liver, anem ia, thrombocytopenia. Negative stress test. Negative echo. RECOMMENDATION: Continue spironolactone. Continue gentle diuretics. Continue cough suppressant. C ontinue active treatment for COPD. CVS status is stable. We will follow with you. Thank you, Dr. Starkey, for providing me the opportunity in taking care of the patient. Armando Bolivar MD cc: [phone] TT: 12/18/2016 11:15:35 Confirmation # [id number] Dictation # [id number] kasi
--- NOTE | 2016-12-18 12:45 | PN ---
DATE: 12/18/2016 SUBJECTIVE: The patient is a 56-year-old, seen and examined, lying in bed. Seems to be comfortable no shortness of breath. Otherwise doing well. PHYSICAL EXAMINATION: VITAL SIGNS: She is afebrile, pulse 66, respirations 18, blood pressure 128/65. LUNGS: Bilateral fair airflow, no rhonchi or crackle. HEART: S1, S2 audible. LABORATORY: WBC 11.8, hemoglobin 11.3, hematocrit 34.3, platelets of 79. PT 15.7, INR 1.45. 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 L FTs are within normal limits. Her TSH is suppressed thyroid. ASSESSMENT: 1. Status post bilateral basal pneumonia, seems to be improving. The patient is afebrile and cough seems to be resolving. Chest pain probably noncardiac. Had stress test done yesterday. The results show normal Myoview study, myocardial perfusion study, and echocardiogram is unremarkable. 2. Resolving pneumonia. 3. History of hepatitis C that was treated the past August, and undetectable stage. 4. Cirrhosis of liver. 5. Non-insulin dependent diabetes. 6. Hypertension. 7. Chronic thrombocytopenia. PLAN: We will continue patient on current antibiotic. The patient was scheduled to have an endoscop y done, but she refused this morning, so she would rather have this scheduled as outpatient. For now , will continue her on another 2 days of Zithromax and Rocephin and will discontinue on 12/20 and she will be discharged home on if she remains stable. Matheus Starkey MD cc: [phone] TT: 12/18/2016 12:44:36 Confirmation # [id number] Dictation # [id number] yolie
--- NOTE | 2016-12-18 12:51 | PN ---
DATE: 12/18/2016 Seen and examined in TCU earlier today. The patient scheduled for endoscopy, but symptoms improved a nd does not want endoscopy now. No new complaints. VITAL SIGNS: Temperature is 98.1, blood pressure 128/65, pulse rate 66, respirations 18, 97 room air . LABORATORY DATA: WBC is 11.8, H and H is 11.3 and hematocrit is 34.3, platelets are 79, manual is 85 . The PT is 15.7, INR is 1.45. Sodium 130, K 4.4, BUN 30, creatinine is 0.7. Total bilirubin 0.8, AST 23, ALT 59, alk phos is 76. PHYSICAL EXAMINATION: HEENT: Sclera is anicteric. NECK: Supple. CARDIAC: S1, S2. LUNGS: Sounds are clear. ABDOMEN: With bowel sounds, soft. Nontender in the epigastric area. No rebound, guarding. ASSESSMENT: A 56-year-old female with history of cirrhosis secondary to hepatitis C. She is status post treatment for hepatitis C and in remission. The patient originally complained of epigastric mee n with unknown etiology. She did go for an abdominal ultrasound and that was negative for acute find ings. The patient was scheduled for an upper endoscopy but the patient reports that her epigastric discomfo rt has improved and she is also reluctant. At the present time, she refused to have endoscopy done, will consider as an outpatient. Will continue current treatment. The patient is on gastrointestinal prophylaxis. She is also on bowel regimen and on IV antibiotics for bibasilar infiltrates, improvin g. The patient was seen and case discussed with Dr. Darnell. Sarah LANE cc: [phone] TT: 12/18/2016 12:51:35 Confirmation # [id number] Dictation # [id number] sn
--- NOTE | 2016-12-19 01:22 | PN ---
DATE: 12/18/2016 ADDENDUM This is an addendum to the progress report dictated by Sarah Cuellar NP. This patient was seen and evaluated today. The patient refused examination again. The patient is comfortable. She states her pain has completely disappeared. PHYSICAL EXAMINATION: ABDOMEN: Soft. There is no tenderness. IMPRESSION/PLAN: This is a 56-year-old patient with cirrhosis secondary to hep C, epigastric pain, which she states is now totally resolved, refused endoscopic evaluation and further workup at the present time. She said she will consider this at a later time. 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 Thank you very much for allowing us to participate in the care of the patient. Ann Darnell MD cc: [id number] TT: 12/19/2016 01:22:08 Confirmation # [id number] Dictation # [id number] kasi HERNANDEZ
[2016-12-19] MEDS: Levalbuterol 1.25 MG/3 ML Inhal Soln UD IH SCH ×4 (03:10→20:40)
[2016-12-19] MEDS: Pantoprazole 40 mg EC Tab PO SCH (05:39)
[2016-12-19] MEDS: cefTRIAXone 1 gm 1 GM/100 ML BAG IVPB SCH (05:40)
[2016-12-19] MEDS: Azithromycin 500MG/NS 250ml 500 MG/250 ML BAG IVPB SCH (05:42)
[2016-12-19] MEDS: MethylPREDNISolone 40 mg Vial IVP SCH ×2 (06:09→17:36)
[2016-12-19] MEDS: Insulin Lispro (humaLOG) MIX 75/25(10 ml) SC SCH ×2 (06:40→17:32)
[2016-12-19] MEDS: Insulin Reg-HIGH-Coverage SC SCH ×4 (06:41→22:19)
--- NOTE | 2016-12-19 12:37 | PN ---
DATE: 12/19/2016 The patient in room 304, bed 1. REASON FOR CONSULTATION AND FOLLOWUP: Chest pain, shortness of breath, hypertension. HISTORY OF PRESENT ILLNESS: The patient is a 56-year-old female admitted with cough, shortness of br eath. The patient has known COPD, found to have exacerbation of COPD, bibasal pneumonia. The patien t is complaining of chest pain on inspiration. The patient had a stress test and echo, which were no rmal. The patient now says she has no chest pain. The only complaint now is that she is getting ivette rt of breath on exertion when she gets physical therapy. Denies any palpitation, but those symptoms also continue to improve. PHYSICAL EXAMINATION: VITAL SIGNS: Blood pressure 132/86, respirations 20, pulse 85, temperature 98.2. HEAD: Normocephalic. EYES: Pupils are normal. Conjunctivae are slightly pale. NECK: JVP low. Carotids equal. THORAX: AP diameter normal. LUNGS: No significant rales. CARDIOVASCULAR: S1, S2. ABDOMEN: Soft, nontender. No organomegaly. EXTREMITIES: No clubbing, no cyanosis. LABORATORY DATA: WBC 11.8, hemoglobin 10.3, hematocrit 34.3, platelets 79. Sodium 130, potassium 4. 4, BUN 30, creatinine 0.7. Random sugar 294. AST 23, ALT 59, total protein and albumin normal. DIAGNOSES: Atypical chest pain only, which was related to cough, has been relieved, chronic obstruct bhumi pulmonary disease, exacerbation of chronic obstructive pulmonary disease, bronchitis, bibasal pne umonia, hypertension, hepatitis C, cirrhosis of liver, anemia, and thrombocytopenia. Stress test ech o normal. PLAN: Continue spironolactone 25 mg daily, antibiotics, prednisone, Xopenex hand nebulizer therapy, lisinopril. We will follow with you. Armando Boucher MD cc: [phone] TT: 12/19/2016 12:36:47 Confirmation # [id number] Dictation # [id number] kasi
[2016-12-19 16:52] VITALS: PULSE 81; O2SAT 97
--- NOTE | 2016-12-19 19:08 | PN ---
DATE: 12/19/2016 SUBJECTIVE: The patient is a 56-year-old seen and examined, sitting in chair, comfortable. No compl aint of chest pain. Does complain of epigastric discomfort off and on. PHYSICAL EXAMINATION: VITAL SIGNS: She is afebrile, pulse , respirations 18, blood pressure 132/86. LUNGS: Bilateral good airflow. No rhonchi or crackle. HEART: S1, S2 audible. No murmur. ABDOMEN: Soft, nontender, no rebound, no guarding. NEUROLOGIC: She is awake and alert, communicative, ambulatory. ASSESSMENT AND PLAN: 1. Community-acquired pneumonia. 2. Asthmatic bronchitis. 3. Peptic ulcer disease. 4. Hepatitis C that was treated early this year. 5. Generalized anxiety disorder. 6. Steroid-induced hyperglycemia. PLAN: We will continue the patient on current medical treatment and will be discontinued after tomorrow morning and her I will switch her steroids to p.o. 10 mg of prednisone and will reevaluate the patient in a.m. If she remains stable, she will be discharged home in a.m. Matheus Starkey MD cc: [phone] TT: 12/19/2016 19:08:10 Confirmation # [id number] Dictation # [id number]
[2016-12-20] MEDS: Pantoprazole 40 mg EC Tab PO SCH (06:18)
[2016-12-20] MEDS: cefTRIAXone 1 gm 1 GM/100 ML BAG IVPB SCH (06:18)
[2016-12-20] MEDS: Azithromycin 500MG/NS 250ml 500 MG/250 ML BAG IVPB SCH (06:19)
[2016-12-20] MEDS: Insulin Lispro (humaLOG) MIX 75/25(10 ml) SC SCH (06:39)
[2016-12-20] MEDS: Insulin Reg-HIGH-Coverage SC SCH ×2 (06:40→11:41)
[2016-12-20] MEDS: Levalbuterol 1.25 MG/3 ML Inhal Soln UD IH SCH ×2 (07:45→13:34)
--- NOTE | 2016-12-20 08:52 | PN ---
DATE: 12/20/2016 REASON FOR CONSULTATION AND FOLLOWUP: Continuity of the care in transitional care unit, status post stress test, status post echo. BRIEF CLINICAL HISTORY: This is a 56-year-old female with a past medical history of COPD, ____. The patient underwent echo and stress test, essentially normal stress thallium. Denies any chest pain, shortness of breath, any palpitation. PHYSICAL EXAMINATION: VITAL SIGNS: Temperature afebrile, heart rate is 64, blood pressure 130/80. HEENT: PERRLA. Extraocular muscles intact. NECK: Supple. No carotid bruits. No thyromegaly. CHEST: Clear to auscultation. HEART: S1, S2 regular. ABDOMEN: Soft. EXTREMITIES: Clubbing and cyanosis negative. LABORATORY DATA: Blood workup pending. IMPRESSION: Chronic obstructive pulmonary disease, asthma, hypertension, negative stress test, essen tially no significant structural heart disease on echo. RECOMMENDATION: Follow up the lab when the system is available as the computer system is down. Cont inue current medication. Continue rehab. We will follow with you. Thank you, Dr. Starkey, for providing us the opportunity in taking care of the patient. Armando Bolivar MD cc: [phone] TT: 12/20/2016 08:51:26 Confirmation # [id number] Dictation # [id number]
[2016-12-20 10:43] VITALS: BP 142/52
[2016-12-20 11:48] VITALS: RESP 20; TEMP 98.3
--- NOTE | 2016-12-20 12:03 | PN ---
DATE: 12/20/2016 Seen and examined at the bedside earlier today. The patient reports improvement of her heartbu rn, but occasionally may get in the evening or in the morning. She is on Protonix 40 daily. Moving her bowels with no difficulty, having formed stool, does not notice any blood. Denies abdominal pain . PHYSICAL EXAMINATION: HEENT: Sclera is anicteric. NECK: Supple. CARDIAC: S1, S2. LUNG SOUNDS: With decreased breath sounds, but good air entry. No rales or wheeze. ABDOMEN: With bowel sounds, soft, nontender on palpation. No rebound, guarding, or organomegaly. EXTREMITIES: No edema. NEUROLOGIC: Awake, alert, and oriented. VITAL SIGNS: Temperature is 98.7, blood pressure is 142/52, pulse is 81. No new labs are noted for today. ASSESSMENT: A 56-year-old female with history of liver cirrhosis secondary to hepatitis C, status po st treatment for hepatitis C and in remission, improving epigastric discomfort. Actually, patient de nies pain, although she does complain of occasional acid reflux. Abdominal ultrasound was done, is n egative. Currently, the patient is reluctant for endoscopy since her epigastric discomfort has impro jessi. We will continue the Protonix 40 daily, but add Pepcid in the evening. I did discuss with the patien t that she would still benefit from an upper endoscopy and the patient is agreeable, but as outpatien t. Currently, she is on ceftriaxone, on Zithromax and prednisone and Aldactone. Continue the diet a s tolerated. The patient seen and case discussed with Dr. Darnell. Sarah Cuellar ARIANA cc: [phone] TT: 12/20/2016 12:02:42 Confirmation # [id number] Dictation # [id number]
--- NOTE | 2016-12-20 13:33 | DS ---
The patient is a 56-year-old, seen and examined, lying in bed, seems to be comfortable. Still has oc casional cough. PHYSICAL EXAMINATION: VITAL SIGNS: She is afebrile, pulse 81, respirations 20, blood pressure 142/52. LUNGS: Bilateral good airflow, no rhonchi or crackle. HEART: S1, S2 audible. ABDOMEN: Soft, nontender, no rebound, no guarding. NEUROLOGIC: She is awake and alert, communicative, ambulatory. EXTREMITIES: No leg edema. ASSESSMENT: 1. Bilateral pneumonia, community-acquired, seems to be resolved, the patient is asymptomatic, no fe ericka, no shortness of breath. She finished 11 days of IV antibiotics. 2. Chronic obstructive pulmonary disease exacerbation. 3. Hepatitis C that was treated with Jairon earlier this year. 4. Steroid-induced hyperglycemia. PLAN: The patient will be discharged home today. She is given prednisone 10 mg daily for 5 days and she will resume her medications including spironolactone. She will use nebulizer she has at home. She will also continue Protonix. Will discontinue Rocephin and Zithromax. The patient will follow u p in office in a week or two. Matheus Starkey MD cc: [phone] TT: 12/20/2016 13:33:26 yolie
== END 2016-12-20 17:08 | disposition home or self-care (01) | DRG 190 ==
LOC: TRCU 18:44
PROVIDERS: ADMIT Internal Medicine; ATTEND Internal Medicine
PROC: F07Z9FZ Gait Training/Functional Ambulation Treatment using Assistive, Adaptive, Supportive or Protective Equipment (ICD-10-PCS; principal; 2016-12-13)
PROC: F08Z4FZ Home Management Treatment using Assistive, Adaptive, Supportive or Protective Equipment (ICD-10-PCS; 2016-12-13)
PROC: 3E0F7GC Introduction of Other Therapeutic Substance into Respiratory Tract, Via Natural or Artificial Opening (ICD-10-PCS; 2016-12-13)
DX: J44.0 Chronic obstructive pulmonary disease with (acute) lower respiratory infection (principal); J18.9 Pneumonia, unspecified organism; J44.1 Chronic obstructive pulmonary disease with (acute) exacerbation; Z79.2 Long term (current) use of antibiotics; D69.6 Thrombocytopenia, unspecified; D64.9 Anemia, unspecified; R18.8 Other ascites; E11.65 Type 2 diabetes mellitus with hyperglycemia; K74.60 Unspecified cirrhosis of liver; I10 Essential (primary) hypertension; E78.5 Hyperlipidemia, unspecified; T38.0X5A Adverse effect of glucocorticoids and synthetic analogues, initial encounter; K21.9 Gastro-esophageal reflux disease without esophagitis; K27.9 Peptic ulcer, site unspecified, unspecified as acute or chronic, without hemorrhage or perforation; F41.1 Generalized anxiety disorder; M19.90 Unspecified osteoarthritis, unspecified site; Z79.84 Long term (current) use of oral hypoglycemic drugs; Z86.19 Personal history of other infectious and parasitic diseases; Z90.49 Acquired absence of other specified parts of digestive tract; Z82.49 Family history of ischemic heart disease and other diseases of the circulatory system

== ENCOUNTER 2017-04-29 02:51 | Inpatient (IN) | payer MEDICARE, MEDICAID ==
[2017-04-29 02:52] VITALS: BMI 32.6
[2017-04-29] MEDS ORDERED: Morphine 2 mg/ml ISec IVP STA (03:22)
[2017-04-29] MEDS ORDERED: Sodium Chloride 0.9% 1,000 ML IV STA ×3 (03:22→12:35)
[2017-04-29] MEDS ORDERED: Pantoprazole 40 MG in Sodium Chloride 0.9% 100 ML IV STA (03:22)
--- NOTE | 2017-04-29 03:27 | ED PDOC ---
Arrival/HPI - General Chief Complaint: Chest Pain Time Seen by Provider: 04/29/17 03:14 Historian: Patient - History of Present Illness Narrative History of Present Illness (Text): 04/29/17 03:25 Jessica Cerrato is a 56 year old female, whose past medical history includes hypertension, diabetes, seizures, peritonitis, hepatic cirrhosis, appendectomy, and cholecystectomy, who presents to the emergency department complaining of chest and abdominal pain with multiple episodes of simultaneous vomiting and bowel movements for one day. Patient states that her pain causes her to experience shortness of breath. Patient denies any fever, chills, c urinary symptoms, back pain, neck pain, headache, dizziness, or any other complaints. Time/Duration: 24 hours Symptom Onset: Gradual Symptom Course: Worsening Severity Level: Mild Activities at Onset: Light Context: Home Past Medical History - Provider Review Nursing Documentation Reviewed: Yes - Reproductive Menopause: Yes - Cardiac Hx Hypertension: Yes - Pulmonary Hx Asthma: Yes Hx Chronic Obstructive Pulmonary Disease (COPD): Yes - Neurological Hx Seizures: Yes - HEENT Hx HEENT Disorder: Yes (wears glasses) - Renal Hx Renal Disorder: No - Endocrine/Metabolic Hx Diabetes Mellitus Type 2: Yes - Hematological/Oncological Hx Cirrhosis: Yes (1976) Hx Hepatitis C: Yes (from blood transfusion x4 1976) Other/Comment: in 1976 appendix burst causing peritonitis, pt received 4 blood transfusions and developed hepatitis c from the blood, which caused cirrhosis - Integumentary Hx Dermatological Disorder: No - Musculoskeletal/Rheumatological Hx Arthritis: Yes - Gastrointestinal Hx Pancreatitis: Yes (2 yrs ago) - Genitourinary/Gynecological Hx Genitourinary Disorders: No Hx Reproductive Disorders: No - Psychiatric Hx Anxiety: Yes Hx Depression: Yes Hx Substance Use: No - Surgical History Hx Appendectomy: Yes (1976) Hx Section: Yes Hx Cholecystectomy: Yes (1979) Other/Comment: 1982 1/2 fallopian tube removed and 1 ovary intestinal - Anesthesia Hx Anesthesia: Yes Hx Anesthesia Reactions: No Hx Malignant Hyperthermia: No - Suicidal Assessment Feels Threatened In Home Enviroment: No Family/Social History - Physician Review Nursing Documentation Reviewed: Yes Family/Social History: No Known Family HX Smoking Status: Never Smoked Hx Alcohol Use: No Hx Substance Use: No Hx Substance Use Treatment: No Allergies/Home Meds Allergies/Adverse Reactions: Allergies aspirin Allergy (Verified 04/29/17 03:06) ANAPHYLAXIS prochlorperazine [From Compazine] Allergy (Verified 04/29/17 03:06) ANAPHYLAXIS Home Medications: Home Meds Medication Instructions Recorded Confirmed Montelukast Sodium [Singulair] 10 mg PO DAILY 10/23/14 04/29/17 Omeprazole [PrilOSEC] 20 mg PO DAILY 10/23/14 04/29/17 Oxycodone HCl/Acetaminophen 1 tab PO Q6H PRN 10/23/14 04/29/17 [Percocet 5-325 mg Tablet] Spironolactone [Aldactone] 100 mg PO DAILY 10/23/14 04/29/17 amLODIPine [Norvasc] 5 mg PO DAILY 10/23/14 04/29/17 Albuterol HFA [Ventolin HFA 90 0.09 mg IH DAILY 04/29/17 04/29/17 mcg/actuation (8 g)] Arformoterol [Brovana] 15 mcg IH DAILY 04/29/17 04/29/17 Budesonide [Pulmicort Respules] 0.5 mg IH DAILY 04/29/17 04/29/17 Dicyclomine [Bentyl] 10 mg PO DAILY 04/29/17 04/29/17 Fentanyl [Duragesic Patch] 150 mcg TOP Q72 04/29/17 04/30/17 Hydroxyzine HCl 25 mg PO DAILY 04/29/17 04/29/17 Tiotropium [place] Inhaler 1 inhaler INH PRN PRN 04/29/17 04/29/17 [Spiriva Inhalation Handihaler Device] Review of Systems - Review of Systems Constitutional: absent: Fevers, Night Sweats Eyes: absent: Vision Changes ENT: absent: Hearing Changes Respiratory: absent: SOB Cardiovascular: Chest Pain Gastrointestinal: Abdominal Pain, Nausea, Vomiting Genitourinary Female: absent: Dysuria Musculoskeletal: absent: Arthralgias, Back Pain Skin: absent: Rash, Pruritis Neurological: absent: Headache, Dizziness Endocrine: absent: Diaphoresis Physical Exam Vital Signs Reviewed: Yes Vital Signs Temp Pulse Pulse Resp BP BP Pulse Ox 04/29/17 06:43 90 16 154/79 H 100 04/29/17 05:00 90 16 157/71 H 99 04/29/17 04:00 97 H 16 173/77 H 100 04/29/17 03:08 101 H 183/83 H 04/29/17 03:07 99.0 F 100 H 16 183/83 H 100 04/29/17 03:01 106 H 20 183/83 H 100 Blood Pressure: Hypertensive Pulse: Tachycardic Respiratory Rate: Normal Appearance: Positive for: Well-Appearing, Non-Toxic, Comfortable Pain Distress: None Mental Status: Positive for: Alert and Oriented X 3 Medical Decision Making ED Course and Treatment: 04/29/17 03:15 Impression: 56 year old female complaining of chest and abdominal pain with multiple episodes of simultaneous vomiting and bowel movements for one day. Differential Diagnosis included but are not limited to: Plan: -- EKG -- Abdomen and Pelvis CT w/o conttast -- VBG and Blood Culture -- Urinalysis and Urine Culture -- Labs -- Morphine, Protonix, Zofran and IV fluids -- Reassess and disposition Prior Visits: Notes and results from previous visits were reviewed. Patient last seen in the ED on 12/09/16 for a fever for one day. Patient was admitted to hospitalist care for further evaluation. Progress Notes: EKG: Ordered, reviewed, and independently interpreted the EKG. Rate : 102 BPM Rhythm : Sinus Tachycardia Interpretation : No ST-segment elevations or depressions, no T-wave inversions, normal intervals. 04/29/17 05:[address] Starkey, who is aware and agrees with patient plan. - Lab Interpretations Microbiology Results: Microbiology Results 04/29/17 03:25 Blood-Venous Blood Culture - Preliminary NO GROWTH AFTER 3 DAYS 04/29/17 03:05 Blood-Venous Blood Culture - Preliminary NO GROWTH AFTER 3 DAYS 04/29/17 04:40 Urine,Clean Catch Urine Culture - Final Gram Positive Cocci Lab Results: 04/29/17 03:02 04/29/17 03:02 Lab Results 04/29/17 04:40: Urine Color Yellow, Urine Appearance Clear, Urine pH 7.5, Ur Specific [place] 1.010, Urine Protein Negative, Urine Glucose (UA) Negative, Urine Ketones Negative, Urine Blood Trace-intact H, Urine Nitrate Negative, Urine Bilirubin Negative, Urine Urobilinogen 0.2, Ur Leukocyte Esterase Negative , Urine RBC 0 - 2, Urine WBC 0 - 2, Ur Epithelial Cells 0 - 2 04/29/17 03:42: Procalcitonin 0.07 L 04/29/17 03:33: pO2 57 H, VBG pH 7.42, VBG pCO2 47.0, VBG HCO3 30.5 H, VBG Total CO2 31.9 H, VBG O2 Sat (Calc) 94.6 H, VBG Base Excess 5.3 H, VBG Potassium 3.7, Glucose 238 H, Lactate 1.6, FiO2 21.0, Sodium 135.0, Chloride 101.0, Venous Blood Potassium 3.7 04/29/17 03:02: Sodium 136, Potassium 4.0, Chloride 97 L, Carbon Dioxide 28, Anion Gap 15, BUN 12, Creatinine 0.6, Est GFR ( Amer) > 60, Est GFR (Non- Af Amer) > 60, Random Glucose 223 H, Calcium 8.8, Total Bilirubin 1.2, AST 37 H , ALT 30, Alkaline Phosphatase 109, Lactate Dehydrogenase 541, Total Creatine Kinase 54, Troponin I < 0.01, Total Protein 7.8, Albumin 3.8, Globulin 4.0, Albumin/Globulin Ratio 1.0 L, Amylase 45, Lipase 117 04/29/17 03:02: PT 14.3 H, INR 1.32 H, APTT 33.7 H 04/29/17 03:02: WBC 6.9 D, RBC 4.79, Hgb 9.9 L, Hct 32.1 L, MCV 67.0 L, MCH 20.7 L, MCHC 30.8 L, RDW 16.3 H, Plt Count 84 L, Gran % 76.2 H, Lymph % (Auto) 12.6 L, [place] % (Auto) 9.8 H, Eos % (Auto) 1.4 L, Baso % (Auto) 0.0, Gran # 5.27 , Lymph # 0.9 L, [place] # 0.7 H, Eos # 0.1, Baso # 0.00 I have reviewed the lab results: Yes - RAD Interpretation Radiology Orders: 04/29/17 03:22 ABD & PELVIS W/O PO OR IV CONT [CT] Stat 04/29/17 03:31 CHEST ONE VIEW [RAD] Stat - Medication Orders Current Medication Orders: Discontinued Medications Albuterol/Ipratropium (Duoneb 3 Mg/0.5 Mg (3 Ml) Ud) 3 ml IH Q2H PRN PRN Reason: Shortness of Breath Albuterol/Ipratropium (Duoneb 3 Mg/0.5 Mg (3 Ml) Ud) 3 ml IH [id number] [facility] Last Admin: 05/01/17 13:06 Dose: Not Given Non-Admin Reason: Patient Refused Alprazolam (Xanax) 0.25 mg PO HS [facility] PRN Reason: Protocol Stop: 05/07/17 22:01 Last Admin: 04/30/17 21:42 Dose: 0.25 mg Behavioural Document 04/30/17 21:42 FC (Rec: 04/30/17 21:42 FC [id number]) Maintenance Maintenance Dose Yes Nonmedicinal Nonmedicinal Interventions Therapeutic Communication Behavior Behavior for Medication: Insomnia Re-Assess: Reassess Psych Meds Document 04/30/17 22:42 FC (Rec: 05/01/17 04:39 FC [id number]) Reassess Psych Med Effective Amlodipine Besylate (Norvasc) 5 mg PO DAILY [facility] Last Admin: 05/01/17 09:42 Dose: 5 mg MAR Pulse and Blood Pressure Document 05/01/17 09:42 RS (Rec: 05/01/17 09:43 RS [id number]) Blood Pressure Blood Pressure (100/60-150/90) 143/77 Ceftriaxone Sodium (Rocephin) 1 gm IVPB .STK-MED ONE Stop: 04/30/17 13:14 Last Admin: 04/30/17 13:13 Dose: 1 gm Furosemide (Lasix) 40 mg IVP DAILY [facility] Last Admin: 05/01/17 09:42 Dose: 40 mg MAR Blood Pressure Document 05/01/17 09:42 RS (Rec: 05/01/17 09:42 RS [id number]) Blood Pressure Blood Pressure (100/60-150/90) 143/77 IVP Administration Document 05/01/17 09:42 RS (Rec: 05/01/17 09:42 RS [id number]) Charges for Administration # of IVP Administrations 1 Hydromorphone HCl (Dilaudid) 2 mg IVP STAT STA Stop: 04/29/17 05:47 Last Admin: 04/29/17 05:58 Dose: 2 mg MAR Pain Assessment Document 04/29/17 05:58 YP (Rec: 04/29/17 05:58 YP [id number]) Pain Reassessment Is this a pain reassessment? Yes Sleep Is patient sleeping during reassessment? No Presence of Pain Presence of Pain Yes IVP Administration Document 04/29/17 05:58 YP (Rec: 04/29/17 05:58 YP [id number]) Charges for Administration # of IVP Administrations 1 Hydromorphone HCl (Dilaudid) 0.5 mg IVP Q4H PRN PRN Reason: Pain, moderate (4-7) Last Admin: 05/01/17 06:39 Dose: 0.5 mg [facility] Pain Assessment Document 05/01/17 06:39 FC (Rec: 05/01/17 06:40 FC [place] [id number]) Pain Reassessment Is this a pain reassessment? No Presence of Pain Presence of Pain Yes Pain Scale Used Pain Scale Used Numeric Location Left, Right or Bilateral Right Pain Location Body Site Abdomen Description Description Sharp Pain Behavior Facial Grimacing Aggravating Factors None Alleviating Factors/Management Medication Techniques Alleviating Factors Medication IVP Administration Document 05/01/17 06:39 FC (Rec: 05/01/17 06:40 FC [place] [id number]) Charges for Administration # of IVP Administrations 1 Re-Assess: [facility] Pain Assessment Document 05/01/17 07:39 RS (Rec: 05/01/17 09:43 RS [place] [id number]) Pain Reassessment Is this a pain reassessment? Yes Sleep Is patient sleeping during reassessment? No Presence of Pain Presence of Pain No Sodium Chloride (Sodium Chloride 0.9%) 1,000 mls @ 100 mls/hr IV .Q10H STA Stop: 04/29/17 13:21 Last Admin: 04/29/17 03:38 Dose: 100 mls/hr eMAR Start Stop Document 04/29/17 03:38 YP (Rec: 04/29/17 03:38 YP [id number]) Intravenous Solution Start Date 04/29/17 Start Time 03:38 End Date 04/29/17 End time 06:40 Total Infusion Time 182 Metronidazole (Flagyl) 500 mg in 100 mls @ 100 mls/hr IVPB STAT STA PRN Reason: Protocol Stop: 04/29/17 06:46 Last Admin: 04/29/17 08:26 Dose: 100 mls/hr eMAR Start Stop Document 04/29/17 08:26 VS (Rec: 04/29/17 08:26 VS [id number]) Intravenous Solution Start Date 04/29/17 Start Time 08:26 End Date 04/29/17 End time 09:26 Total Infusion Time 60 Piperacillin Sod/Tazobactam Sod (Zosyn 3.375 In Ns 100ml) 100 mls @ 200 mls/hr IVPB STAT STA PRN Reason: Protocol Stop: 04/29/17 06:17 Last Admin: 04/29/17 05:58 Dose: 200 mls/hr eMAR Start Stop Document 04/29/17 05:58 YP (Rec: 04/29/17 05:58 YP [id number]) Intravenous Solution Start Date 04/29/17 Start Time 05:58 End Date 04/29/17 End time 06:28 Total Infusion Time 30 Sodium Chloride (Sodium Chloride 0.9%) 1,000 mls @ 100 mls/hr IV .Q10H STA Stop: 04/29/17 16:01 Last Admin: 04/29/17 06:41 Dose: 100 mls/hr eMAR Start Stop Document 04/29/17 06:41 YP (Rec: 04/29/17 06:41 YP [id number]) Intravenous Solution Start Date 04/29/17 Start Time 06:41 Sodium Chloride (Sodium Chloride 0.9%) 1,000 mls @ 75 mls/hr IV .[id number] STA Stop: 04/29/17 16:41 Last Admin: 04/29/17 12:58 Dose: 75 mls/hr eMAR Start Stop Document 04/29/17 12:58 VS (Rec: 04/29/17 12:58 VS [id number]) Intravenous Solution Start Date 04/29/17 Start Time 12:58 End Date 04/29/17 Sodium Chloride (Sodium Chloride 0.9%) 1,000 mls @ 150 mls/hr IV .Q6H40M [facility] Last Admin: 04/30/17 00:45 Dose: 150 mls/hr eMAR Start Stop Document 04/30/17 00:45 FC (Rec: 04/30/17 01:05 FC [id number]) Intravenous Solution Start Date 04/30/17 Start Time 00:45 End Date 04/30/17 Ceftriaxone Sodium (Rocephin 1 Gram Ivpb) 1 gm in 100 mls @ 100 mls/hr IVPB ONCE ONE PRN Reason: Protocol Stop: 05/01/17 12:59 Ceftriaxone Sodium (Rocephin 1 Gram Ivpb) 1 gm in 100 mls @ 100 mls/hr IVPB ONCE ONE PRN Reason: Protocol Stop: 04/30/17 12:59 Last Admin: 04/30/17 13:13 Dose: Sodium Chloride (Sodium Chloride 0.9%) 250 mls @ 75 mls/hr IV .Q3H20M ANGELIQUE Stop: 04/30/17 15:31 Insulin Human Regular (Humulin R Med) 0 units SC ACHS ANGELIQUE PRN Reason: Protocol Last Admin: 05/01/17 16:59 Dose: 8 units MAR Blood Glucose Document 05/01/17 16:59 RS (Rec: 05/01/17 17:[address] [id number]) Blood Glucose Finger Stick Blood Glucose (70-120) 368 Subcutaneous Administrations Document 05/01/17 16:59 RS (Rec: 05/01/17 17:[address] [id number]) Charges for Administration # of Subcutaneous Administrations 1 Lactulose (Enulose) 20 gm PO ONCE ONE Stop: 05/01/17 11:29 Last Admin: 05/01/17 11:42 Dose: 20 gm Morphine Sulfate (Morphine) 2 mg IVP STAT STA Stop: 04/29/17 03:23 Last Admin: 04/29/17 03:38 Dose: 2 mg MAR Pain Assessment Document 04/29/17 03:38 YP (Rec: 04/29/17 03:39 YP [id number]) Pain Reassessment Is this a pain reassessment? No Sleep Is patient sleeping during reassessment? No Presence of Pain Presence of Pain Yes IVP Administration Document 04/29/17 03:38 YP (Rec: 04/29/17 03:39 YP [id number]) Charges for Administration # of IVP Administrations 1 Re-Assess: MAR Pain Assessment Document 04/29/17 04:38 YP (Rec: 04/29/17 05:58 YP [id number]) Pain Reassessment Is this a pain reassessment? Yes Sleep Is patient sleeping during reassessment? No Presence of Pain Presence of Pain Yes Ondansetron HCl (Zofran Inj) 4 mg IVP STAT STA Stop: 04/29/17 03:23 Last Admin: 04/29/17 03:39 Dose: 4 mg IVP Administration Document 04/29/17 03:39 YP (Rec: 04/29/17 03:39 YP [id number]) Charges for Administration # of IVP Administrations 1 Ondansetron HCl (Zofran Inj) 4 mg IVP Q6H PRN PRN Reason: Nausea/Vomiting Pantoprazole Sodium (Protonix Inj) 40 mg IVP STAT STA Stop: 04/29/17 03:29 Last Admin: 04/29/17 03:38 Dose: 40 mg IVP Administration Document 04/29/17 03:38 YP (Rec: 04/29/17 03:38 YP [id number]) Charges for Administration # of IVP Administrations 1 Pantoprazole Sodium (Protonix Inj) 40 mg IVP DAILY ANGELIQUE Last Admin: 05/01/17 09:41 Dose: 40 mg IVP Administration Document 05/01/17 09:41 RS (Rec: 05/01/17 09:41 RS [id number]) Charges for Administration # of IVP Administrations 1 Propofol (Diprivan) Confirm Administered Dose 200 mg .ROUTE .STK-MED ONE Stop: 04/30/17 13:13 - Scribe Statement The provider has reviewed the documentation as recorded by the Padmini Elizabeth Provider Scribe Attestation: All medical record entries made by the Scribe were at my direction and personally dictated by me. I have reviewed the chart and agree that the record accurately reflects my personal performance of the history, physical exam, medical decision making, and the department course for this patient. I have also personally directed, reviewed, and agree with the discharge instructions and disposition. Disposition/Present on Arrival - Present on Arrival Any Indicators Present on Arrival: No History of DVT/PE: No History of Uncontrolled Diabetes: No Urinary Catheter: No History of Decub. Ulcer: No History Surgical Site Infection Following: None - Disposition Have Diagnosis and Disposition been Completed?: Yes Diagnosis: Intractable abdominal pain Disposition: HOSPITALIZED Disposition Time: 06:00 Condition: FAIR
[2017-04-29 03:46] LABS: EOS # 0.1 (0.0-0.7); EOS % 1.4 % (1.5-5.0); GRAN # 5.27 (1.4-6.5); GRAN % 76.2 % (50.0-68.0); HEMATOCRIT 32.1 % (36.0-48.0); INR 1.32 (0.93-1.08); LYMPH # 0.9 (1.2-3.4); LYMPH % 12.6 % (22.0-35.0); MEAN CORPUSCULAR HEMOGLOBIN 20.7 pg (25.0-35.0); MEAN CORPUSCULAR HGB CONC 30.8 g/dl (31.0-37.0); MONO # 0.7 (0.1-0.6); MONO % 9.8 % (1.0-6.0); PARTIAL THROMBOPLASTIN TIME 33.7 Seconds (23.7-30.8); PLATELET COUNT 84 10^3/uL (120.0-450.0); RED CELL DISTRIBUTION WIDTH 16.3 % (11.5-14.5); WHITE BLOOD COUNT 6.9 10^3/ul (4.5-11.0)
[2017-04-29 03:52] LABS: VENOUS BLOOD GAS BASE EXCESS 5.3 mmol/L (0.0-2.0); VENOUS BLOOD PH 7.42 (7.32-7.43)
[2017-04-29 03:57] LABS: ALKALINE PHOSPHATASE 109 U/L (38-126); ALT/SGPT 30 U/L (7-56); AMYLASE 45 U/L (35-125); AST/SGOT 37 U/L (14-36); BILIRUBIN,TOTAL 1.2 mg/dL (0.2-1.3); BLOOD UREA NITROGEN 12 mg/dL (7-21); CALCIUM 8.8 mg/dL (8.4-10.5); CARBON DIOXIDE 28 mmol/L (21-33); CHLORIDE 97 mmol/L (98-107); GFR AFRICAN-AMERICAN > 60; GLUCOSE,RANDOM 223 mg/dL (70-110); LIPASE 117 U/L (23-300); SODIUM 136 mmol/L (132-148); TOTAL PROTEIN 7.8 g/dL (5.8-8.3)
[2017-04-29 04:29] LABS: TROPONIN I < 0.01 ng/mL
[2017-04-29 05:02] LABS: PH,URINE 7.5 (4.7-8.0); URINE BILIRUBIN NEGATIVE (NEGATIVE); URINE BLOOD TRACE-INTACT (NEGATIVE); URINE GLUCOSE (UA) NEGATIVE (NEGATIVE); URINE KETONE NEGATIVE (NEGATIVE); URINE LEUKOCYTE ESTERASE NEGATIVE Leu/uL (NEGATIVE); URINE PROTEIN NEGATIVE mg/dL (<30 mg/dL); URINE UROBILINOGEN 0.2 E.U./dL (<1 E.U./dL)
[2017-04-29 05:23] LABS: URINE APPEARANCE CLEAR (CLEAR); URINE COLOR YELLOW (YELLOW)
[2017-04-29 05:25] LABS: URINE EPITHELIAL CELLS 0 - 2 /hpf (0-5); URINE RBC 0 - 2 /hpf (0-2); URINE WBC 0 - 2 /hpf (0-6)
--- NOTE | 2017-04-29 05:41 | CT ---
EXAM: CT Abdomen and Pelvis Without Intravenous Contrast EXAM DATE/TIME: 04/29/2017 3:22 AM CLINICAL HISTORY: 56 years old, female; Pain; Abdominal pain; Acute; Additional info: Abd pain TECHNIQUE: Axial computed tomography images of the abdomen and pelvis without intravenous contrast. All CT scans at this facility use one or more dose reduction techniques, viz.: automated exposure control; ma/kV adjustment per patient size (including targeted exams where dose is matched to indication; i.e. head); or iterative reconstruction technique. Coronal and sagittal reformatted images were created and reviewed. COMPARISON: Prior abdominal ultrasound of 12/16/2016 FINDINGS: LOWER THORAX: No infiltrate seen in the lung bases. ABDOMEN: LIVER: Liver is significantly cirrhotic in appearance. Multiple abdominal collateral vessels are seen. This constellation of findings is compatible with portal hypertension due to chronic liver disease. No liver lesions are visualized on this unenhanced exam. GALLBLADDER AND BILE DUCTS: Biliary ductal dilatation, which may be related to the post cholecystectomy state. The gallbladder has reportedly been surgically removed. Recommend correlation with LFTs as clinically indicated. PANCREAS: No CT evidence of acute pancreatitis. SPLEEN: Splenomegaly, with the spleen measuring 18 cm in AP dimensions. ADRENALS: No acute abnormality of the adrenal glands identified. KIDNEYS AND URETERS: No acute abnormality of the kidneys seen. STOMACH AND BOWEL: No acute abnormality of the stomach, small bowel or colon identified, allowing for unenhanced technique. No evidence of bowel obstruction. APPENDIX: Normal appendix is not seen, however, there are no significant inflammatory changes visualized in the expected location of the appendix to suggest appendicitis. Recommend clinical correlation. PELVIS: BLADDER: No acute abnormality of the bladder identified. REPRODUCTIVE:No acute abnormality of the reproductive organs is seen. No acute abnormality of the uterus identified. No evidence of large adnexal masses. ABDOMEN and PELVIS: INTRAPERITONEAL SPACE: Abdominal and pelvic fluid/ascites, moderate to large in amount. This fluid appears loculated/complex. No evidence of free air. BONES/JOINTS: Bony structures appear demineralized. SOFT TISSUES: No acute abnormality of the visualized soft tissues is seen. VASCULATURE: No evidence of abdominal aortic aneurysm or josh-aortic hemorrhage. LYMPH NODES: No evidence of diffuse lymphadenopathy. IMPRESSION: - Moderate to large amount of abdominal and pelvic fluid/ascites. This fluid appears loculated/complex. Complex ascites can be seen in a setting of malignant or infected ascites. Recommend clinical correlation. - Otherwise, no definite acute process is seen on this unenhanced exam. - Findings compatible with portal hypertension due to marked chronic liver disease/cirrhosis. - Splenomegaly. - See above for remaining findings.
[2017-04-29] MEDS ORDERED: HYDROmorphone 2 mg/ml ISec IVP STA (05:46)
[2017-04-29] MEDS ORDERED: metroNIDAZOLE IV 500 mg/100 ml 500 MG/100 ML BAG IVPB STA (05:47)
[2017-04-29] MEDS ORDERED: Piperacillin/Tazobact 3.375 gm 100 ML IVPB STA (05:48)
--- NOTE | 2017-04-29 09:54 | CP.PCM.CON ---
<Altagracia Rhodes - Last Filed: 04/29/17 09:50> History of Present Illness - History of Present Illness History of Present Illness: General Surgery Consult note for Dr. Mckeon 56F presents with abdominal pain and chest pain. 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 Patient admitted to many episodes of simultaneous vomiting and bowel movements for one day. Patient admits to CP, SOB. Denies F/C, urinary issues, back pain. PMH: HTN, diabetes, cirrhosis from hepatitis, seizures. PSH: colon resection, tubooverectomy (unilateral), cholecystectomy, appendectomy , C section Past Patient History - Past Social History Smoking Status: Never Smoked - CARDIAC Hx Cardiac Disorders: Yes Hx Hypertension: Yes Other/Comment: HYPERLIPIDEMIA - PULMONARY Hx Respiratory Disorders: Yes Hx Asthma: Yes Hx Chronic Obstructive Pulmonary Disease (COPD): Yes Hx Pneumonia: Yes - NEUROLOGICAL Hx Neurological Disorder: No - HEENT Hx HEENT Problems: No - RENAL Hx Chronic Kidney Disease: No - ENDOCRINE/METABOLIC Hx Endocrine Disorders: No - HEMATOLOGICAL/ONCOLOGICAL Hx Cirrhosis: Yes Hx Hepatitis C: Yes - INTEGUMENTARY Hx Dermatological Problems: No - MUSCULOSKELETAL/RHEUMATOLOGICAL Hx Arthritis: Yes (RA) - GASTROINTESTINAL Hx Gastrointestinal Disorders: No - GENITOURINARY/GYNECOLOGICAL Hx Genitourinary Disorders: No - PSYCHIATRIC Hx Anxiety: Yes Hx Depression: Yes - SURGICAL HISTORY Other/Comment: THOROCENTESIS - ANESTHESIA Hx Anesthesia: Yes Hx Anesthesia Reactions: No Hx Malignant Hyperthermia: No Meds Allergies/Adverse Reactions: Allergies Allergy/AdvReac Type Severity Reaction Status Date / Time aspirin Allergy ANAPHYLAXIS Verified 04/29/17 03:06 prochlorperazine Allergy ANAPHYLAXIS Verified 04/29/17 03:06 [From Compazine] - Medications Medications: Current Medications Sodium Chloride (Sodium Chloride 0.9%) 1,000 mls @ 100 mls/hr IV .Q10H STA Stop: 04/29/17 13:21 Last Admin: 04/29/17 03:38 Dose: 100 mls/hr Sodium Chloride (Sodium Chloride 0.9%) 1,000 mls @ 100 mls/hr IV .Q10H STA Stop: 04/29/17 16:01 Last Admin: 04/29/17 06:41 Dose: 100 mls/hr Physical Exam - Constitutional Appears: Non-toxic - Head Exam Head Exam: NORMAL INSPECTION - Eye Exam Eye Exam: EOMI, Normal appearance - ENT Exam ENT Exam: Mucous Membranes Moist - Respiratory Exam Respiratory Exam: Decreased Breath Sounds. absent: Accessory Muscle Use, Respiratory Distress - Cardiovascular Exam Cardiovascular Exam: REGULAR RHYTHM, +S1, +S2. absent: Bradycardia, Tachycardia - GI/Abdominal Exam GI & Abdominal Exam: Distended. absent: Firm, Guarding, Tenderness Additional comments: shifting dullness - Extremities Exam Extremities exam: Positive for: full ROM, normal inspection. Negative for: pedal edema - Neurological Exam Neurological exam: Alert, Oriented x3 - Psychiatric Exam Psychiatric exam: Normal Affect, Normal Mood - Skin Skin Exam: Dry, Normal Color, Warm Results - Vital Signs Recent Vital Signs: Last Vital Signs Temp 99.0 F 04/29/17 03:07 Pulse 90 04/29/17 06:43 Resp 18 04/29/17 08:19 BP 154/79 H 04/29/17 06:43 Pulse Ox 100 04/29/17 06:43 - Labs Result Diagrams: 04/29/17 03:02 04/29/17 03:02 Assessment & Plan - Assessment and Plan (Free Text) Assessment: 56F abdominal pain for one day. Plan: c/w antibiotics c/w IVF f/u medical team management, consider paracentesis for ascites c/w pain management] monitor I/Os AM Labs Altagracia Rhodes DO PGY1 - Date & Time Date: 04/29/17 Time: 09:55 <Mike Mckeon - Last Filed: 04/29/17 10:24> Meds - Medications Medications: Current Medications Sodium Chloride (Sodium Chloride 0.9%) 1,000 mls @ 100 mls/hr IV .Q10H STA Stop: 04/29/17 13:21 Last Admin: 04/29/17 03:38 Dose: 100 mls/hr Sodium Chloride (Sodium Chloride 0.9%) 1,000 mls @ 100 mls/hr IV .Q10H STA Stop: 04/29/17 16:01 Last Admin: 04/29/17 06:41 Dose: 100 mls/hr Results - Vital Signs Recent Vital Signs: Last Vital Signs Temp 99.0 F 04/29/17 03:07 Pulse 90 04/29/17 06:43 Resp 18 04/29/17 08:19 BP 154/79 H 04/29/17 06:43 Pulse Ox 100 04/29/17 06:43 - Labs Result Diagrams: 04/29/17 03:02 04/29/17 03:02 Assessment & Plan - Assessment and Plan (Free Text) Assessment: Dx Portal Cirrhossis/[place] Capsule stretch Conservative Rx only/No Surgery recommended This consult done under my direct supervision Elizabeth Mckeon MD FACS
--- NOTE | 2017-04-29 11:10 | CP.PCM.PCO ---
Physician Communication Note - Physician Communication Note Physician Communication Note: Needs paracentesis/?EGD Saturday(Lupe)/Doubt subacute peritonitis)
--- NOTE | 2017-04-29 11:36 | RAD ---
PROCEDURE: CHEST RADIOGRAPH, 1 VIEW HISTORY: pain COMPARISON: None available. FINDINGS: LUNGS: The lungs are clear. PLEURA: No pneumothorax or pleural fluid seen. CARDIOVASCULAR: Normal. OSSEOUS STRUCTURES: No significant abnormalities. VISUALIZED UPPER ABDOMEN: Normal. OTHER FINDINGS: None. IMPRESSION: No active pulmonary disease.
[2017-04-29] MEDS ORDERED: Albuterol-Ipratrop 3 mg / 0.5 (3 ml) UD IH PRN (12:33)
[2017-04-29] MEDS: Insulin Reg-MEDIUM-Coverage SC SCH ×3 (12:37→21:25)
[2017-04-29] MEDS: HYDROmorphone 0.5 mg/0.5 ml ISec IVP PRN (12:57)
[2017-04-29] MEDS: Albuterol-Ipratrop 3 mg / 0.5 (3 ml) UD IH SCH ×2 (14:05→19:47)
--- NOTE | 2017-04-29 14:51 | CP.PCM.CON ---
<Sarah Cuellar - Last Filed: 04/29/17 14:48> History of Present Illness - History of Present Illness History of Present Illness: Seen and examined at the bedside earlier today, chart was reviewed. Request for GI consult is for abdominal pain. HPI: This is a 56-year-old female with a past medical history of seizures, hepatic cirrhosis based secondary to hepatitis C, hypertension came to the emergency room with complaints of chest pain and abdominal pain and multiple episodes of vomiting. Currently her daughter is at the bedside. She reports that the pain has been going on for 1 week, she complains of pain that radiates to her left shoulder. She denies any hematemesis, or blood per rectum. She was seen by our service in December 2016 for complain of abdominal pain and epigastric pain, patient was scheduled for upper endoscopy but patient was reluctant at the time and refused to have procedure done. Patient preferred to have it done as an outpatient but did not follow through. The patient does complain of abdominal distention, lower extremity swelling,and easy bruising. oon admission she had a CT scan of abdomen and pelvis with oral contrast and this reported moderate to large amount of abdominal and pelvic fluid/ascites. The fluid appears loculated/complex. Complex ascites can be seen in the setting of malignant or infected ascites. Findings compatible with portal hypertension due to marked chronic liver disease/cirrhosis. No evidence of lymphadenopathy. Past medical history: Liver cirrhosis secondary to hepatitis C, patient has history of being treated in the past and is in remission as per patient. Hypertension, dyslipidemia, diabetes, peritonitis, seizures. Surgical history: Appendectomy, cholecystectomy, patient states EGD/ colonoscopy done many years ago Allergies: Aspirin and prochlorperazine Social history: Denies smoking EtOH or substance abuse Family history: Noncontributory Medications: Reviewed as per MAR ROS: Systems reviewed with positive findings see HPI Past Patient History - Past Social History Smoking Status: Never Smoked - CARDIAC Hx Cardiac Disorders: Yes Hx Hypertension: Yes Other/Comment: HYPERLIPIDEMIA - PULMONARY Hx Respiratory Disorders: Yes Hx Asthma: Yes Hx Chronic Obstructive Pulmonary Disease (COPD): Yes Hx Pneumonia: Yes - NEUROLOGICAL Hx Neurological Disorder: No - HEENT Hx HEENT Problems: No - RENAL Hx Chronic Kidney Disease: No - ENDOCRINE/METABOLIC Hx Endocrine Disorders: No - HEMATOLOGICAL/ONCOLOGICAL Hx Cirrhosis: Yes Hx Hepatitis C: Yes - INTEGUMENTARY Hx Dermatological Problems: No - MUSCULOSKELETAL/RHEUMATOLOGICAL Hx Arthritis: Yes (RA) - GASTROINTESTINAL Hx Gastrointestinal Disorders: No - GENITOURINARY/GYNECOLOGICAL Hx Genitourinary Disorders: No - PSYCHIATRIC Hx Anxiety: Yes Hx Depression: Yes - SURGICAL HISTORY Other/Comment: THOROCENTESIS - ANESTHESIA Hx Anesthesia: Yes Hx Anesthesia Reactions: No Hx Malignant Hyperthermia: No Meds Allergies/Adverse Reactions: Allergies Allergy/AdvReac Type Severity Reaction Status Date / Time aspirin Allergy ANAPHYLAXIS Verified 04/29/17 03:06 prochlorperazine Allergy ANAPHYLAXIS Verified 04/29/17 03:06 [From Compazine] - Medications Medications: Current Medications Albuterol/Ipratropium (Duoneb 3 Mg/0.5 Mg (3 Ml) Ud) 3 ml IH Q2H PRN PRN Reason: Shortness of Breath Albuterol/Ipratropium (Duoneb 3 Mg/0.5 Mg (3 Ml) Ud) 3 ml IH [id number] [facility] Last Admin: 04/29/17 14:05 Dose: 3 ml Amlodipine Besylate (Norvasc) 5 mg PO DAILY [facility] Last Admin: 04/29/17 12:57 Dose: 5 mg Furosemide (Lasix) 40 mg IVP DAILY [facility] Last Admin: 04/29/17 12:57 Dose: 40 mg Hydromorphone HCl (Dilaudid) 0.5 mg IVP Q4H PRN PRN Reason: Pain, moderate (4-7) Last Admin: 04/29/17 12:57 Dose: 0.5 mg Sodium Chloride (Sodium Chloride 0.9%) 1,000 mls @ 75 mls/hr IV .[id number] STA Stop: 04/29/17 16:41 Last Admin: 04/29/17 12:58 Dose: 75 mls/hr Insulin Human Regular (Humulin R Med) 0 units SC ACHS [facility] PRN Reason: Protocol Last Admin: 04/29/17 12:37 Dose: 3 units Ondansetron HCl (Zofran Inj) 4 mg IVP Q6H PRN PRN Reason: Nausea/Vomiting Pantoprazole Sodium (Protonix Inj) 40 mg IVP DAILY [facility] Physical Exam - Constitutional Appears: No Acute Distress - Head Exam Head Exam: NORMOCEPHALIC - Eye Exam Eye Exam: Normal appearance. absent: Scleral icterus - ENT Exam ENT Exam: Mucous Membranes Moist - Neck Exam Neck exam: Positive for: Normal Inspection - Respiratory Exam Respiratory Exam: Clear to Auscultation Bilateral, NORMAL BREATHING PATTERN. absent: Respiratory Distress - Cardiovascular Exam Cardiovascular Exam: +S1, +S2 - GI/Abdominal Exam GI & Abdominal Exam: Diminished Bowel Sounds, Distended, Soft. absent: Guarding , Rebound, Tenderness - Extremities Exam Extremities exam: Positive for: pedal edema, pedal pulses present. Negative for : calf tenderness - Neurological Exam Neurological exam: Alert, Oriented x3 - Skin Skin Exam: Dry (few scattered ecchymotic area on her arms and lower extremities) , Warm Results - Vital Signs Recent Vital Signs: Last Vital Signs Temp 99.0 F 04/29/17 03:07 Pulse 69 04/29/17 14:01 Resp 18 04/29/17 08:19 BP 152/78 H 04/29/17 12:57 Pulse Ox 100 04/29/17 06:43 - Labs Result Diagrams: 04/29/17 03:02 04/29/17 03:02 Labs: Laboratory Results - last 24 hr 04/29/17 04/29/17 11:02 12:17 Manual Plt Count 95 L POC Glucose (mg/dL) 237 H Assessment & Plan - Assessment and Plan (Free Text) Assessment: Assessment: Liver cirrhosis secondary to hepatitis C in remission Abdominal pain likely secondary to his abdominal ascites rule out SBP/rule out malignancy Portal hypertension Anemia Splenomegaly Hypertension Diabetes mellitus History of seizures Thrombocytopenia Plan: Request evaluation with IR for diagnostic paracentesis Plan for EGD on 04/30/17 after paracentesis Continue IV fluids for hydration Nothing by mouth, if pain and nausea improve consider clear liquids Continue PPI Pain management Monitor H&H Patient's on Lasix, monitor electrolytes Thank you for this consult and for allowing us to participate in your patient's care, will make further recommendations based upon clinical course. Seen and discussed with Dr. Darnell. <Ann Darnell V - Last Filed: 04/29/17 20:20> Meds - Medications Medications: Current Medications Albuterol/Ipratropium (Duoneb 3 Mg/0.5 Mg (3 Ml) Ud) 3 ml IH Q2H PRN PRN Reason: Shortness of Breath Albuterol/Ipratropium (Duoneb 3 Mg/0.5 Mg (3 Ml) Ud) 3 ml IH [id number] [facility] Last Admin: 04/29/17 19:47 Dose: 3 ml Amlodipine Besylate (Norvasc) 5 mg PO DAILY [facility] Last Admin: 04/29/17 12:57 Dose: 5 mg Furosemide (Lasix) 40 mg IVP DAILY [facility] Last Admin: 04/29/17 12:57 Dose: 40 mg Hydromorphone HCl (Dilaudid) 0.5 mg IVP Q4H PRN PRN Reason: Pain, moderate (4-7) Last Admin: 04/29/17 12:57 Dose: 0.5 mg Sodium Chloride (Sodium Chloride 0.9%) 1,000 mls @ 150 mls/hr IV .Q6H40M [facility] Insulin Human Regular (Humulin R Med) 0 units SC ACHS [facility] PRN Reason: Protocol Last Admin: 04/29/17 17:46 Dose: Not Given Ondansetron HCl (Zofran Inj) 4 mg IVP Q6H PRN PRN Reason: Nausea/Vomiting Pantoprazole Sodium (Protonix Inj) 40 mg IVP DAILY [facility] Results - Vital Signs Recent Vital Signs: Last Vital Signs Temp 99.1 F 04/29/17 16:00 Pulse 95 H 04/29/17 18:00 Resp 20 04/29/17 16:00 BP 122/69 04/29/17 16:00 Pulse Ox 97 04/29/17 16:00 - Labs Result Diagrams: 04/29/17 03:02 04/29/17 03:02 Labs: Laboratory Results - last 24 hr 04/29/17 04/29/17 11:02 12:17 Manual Plt Count 95 L POC Glucose (mg/dL) 237 H Attending/Attestation - Attestation I have personally seen and examined this patient.: Yes I have fully participated in the care of the patient.: Yes I have reviewed all pertinent clinical information: Yes Notes (Text): This is an addendum to GI progress report dictated by Sarah Cuellar APN.The patient was seen and examined earlier. Medical records, lab studies, imagings were reviewed. Last 24 hours events reviewed. Agreed with the above treatment plan as outlined in Sarah Cuellar APN's notes the with the addition of the following on examination abdomen distended with ascites CT scan reviewed located collections History of hep C cirrhosis treated For paracentesis requested lab for cytology and cell count Would schedule the patient for EGD in the a.m. Will also consider colonoscopy evaluation after the above Thank you very much for allowing us to participate in the care of the patient 04/29/17 20:17
[2017-04-29] MEDS ORDERED: Insulin Reg-MEDIUM-Coverage SC SCH (16:30)
[2017-04-29] MEDS ORDERED: Sodium Chloride 0.9% 1,000 ML IV SCH (17:45)
--- NOTE | 2017-04-29 19:52 | US ---
PROCEDURE: Ultrasound guided paracentesis. HISTORY: Hepatitis-C cirrhosis. New onset ascites. Needs paracentesis. PHYSICIAN(S): Antonio Stockton MD. TECHNIQUE: The relative risks and indications for the procedure were explained to the patient and informed written consent obtained. Sonography of the abdomen was performed in a supine position. This revealed a small to moderate amount of non-loculated ascites, greatest in the left lower quadrant. A puncture site was selected and the area was prepped and draped in the usual sterile fashion. 1% Xylocaine was used to anesthetize the skin and soft tissues. A 7 [place] paracentesis catheter was trocared into the left lower quadrantand 2100 cc of farhana fluid aspirated. The appropriate labs were sent. IMPRESSION: Ultrasound-guided paracentesis in the left lower quadrant. 2100 cc of fluid were aspirated. Labs were sent
--- NOTE | 2017-04-29 20:58 | CARD ---
APPROVED REPORT EKG Measurement Heart [id number] <Conclusion> Sinus tachycardia Otherwise normal ECG
--- NOTE | 2017-04-30 00:19 | HP ---
HISTORY OF PRESENT ILLNESS: The patient is a 56-year-old, seen and examined. The patient states for the last 2 days, she noticed her abdomen is bloating, usually she states it bloats, but goes down, but this time, it was not going down, she started to have abdominal discomfort with the intractable nausea and vomiting. So, she came to emergency room for further evaluation. Denies any fever or chills. No history of hemoptysis or hematemesis. No rectal bleeding. PAST MEDICAL HISTORY: She has significant past medical history of: 1. Hepatitis C. 2. Cirrhosis liver. 3. [id number] diabetes. 4. Hypertension. 5. History of COPD. SURGICAL HISTORY: Significant for: 1. Appendectomy 1974, at that point, she had blood transfusion, she claims that she got hepatitis after blood transfusion. 2. Partial colectomy. 3. Tubal oophorectomy. 4. Status post cholecystectomy. 5. Hypertension. SOCIAL HISTORY: She is single, lives with her children. Denies smoking and does not drink. HOME MEDICATION: She is on nebulizer treatment. She is on dicyclomine. She is on Brovana, Duragesic patch,hydroxyzine 25 daily, omeprazole 20 mg daily, Spironolactone 100 mg daily, Singulair 10 mg daily, Percocet and amlodipine. REVIEW OF SYSTEMS: Significant for abdominal discomfort. PHYSICAL EXAMINATION GENERAL: She is lying in bed, complains of abdominal bloating and discomfort. VITAL SIGNS: The patient is afebrile, pulse 90, respirations 16, blood pressure 154/79. LUNGS: Bilateral fair air flow. No rhonchi or crackle. HEART: S1 and S2 audible. ABDOMEN: Distended with fluid thrill. NEUROLOGIC: She is awake and alert, not able to communicate. EXTREMITIES: Bilateral leg, no edema. LABORATORY EXAM: WBC of 6.9, hemoglobin 9.9, hematocrit 32, platelet 84. PT 14.3, INR 1.32. Chemistries, sodium 136, potassium 4.0, chloride 97, CO2 28, BUN 12, creatinine 0.6, blood sugar of 223, AST 37. Urinalysis is unremarkable. ASSESSMENT AND PLAN: 1. Tense ascites secondary to cirrhosis liver. 2. Hepatitis C. 3. Gastritis. 4. Chronic obstructive pulmonary disease. PLAN: 1. We will start patient on nebulizer treatment. 2. We will monitor her blood sugar. 3. She could be on clear liquid diet. 4. Dr. Antonio Stockton has been consulted for possible thoracentesis. 5. Start her on PPI and Zofran as needed. 6. Followup electrolyte in a.m. Matheus Starkey MD
[2017-04-30] MEDS: Albuterol-Ipratrop 3 mg / 0.5 (3 ml) UD IH SCH ×4 (02:16→19:45)
[2017-04-30 06:11] LABS: EOS # 0.1 (0.0-0.7); EOS % 2.1 % (1.5-5.0); GRAN # 2.12 (1.4-6.5); GRAN % 63.1 % (50.0-68.0); HEMATOCRIT 26.6 % (36.0-48.0); LYMPH # 0.8 (1.2-3.4); MEAN CELL VOLUME 67.3 fl (80.0-105.0); MEAN CORPUSCULAR HEMOGLOBIN 20.8 pg (25.0-35.0); MEAN CORPUSCULAR HGB CONC 30.8 g/dl (31.0-37.0); MONO # 0.3 (0.1-0.6); MONO % 9.8 % (1.0-6.0); RED CELL DISTRIBUTION WIDTH 16.4 % (11.5-14.5); WHITE BLOOD COUNT 3.4 10^3/ul (4.5-11.0)
[2017-04-30 06:15] LABS: INR 1.46 (0.93-1.08)
[2017-04-30 06:28] LABS: PLATELET COUNT 49 10^3/uL (120.0-450.0)
[2017-04-30 07:19] LABS: ALB/GLOB RATIO 0.8 (1.1-1.8); ALKALINE PHOSPHATASE 77 U/L (38-126); ALT/SGPT 36 U/L (7-56); AST/SGOT 25 U/L (14-36); BILIRUBIN,TOTAL 0.8 mg/dL (0.2-1.3); BLOOD UREA NITROGEN 15 mg/dL (7-21); CALCIUM 7.8 mg/dL (8.4-10.5); CARBON DIOXIDE 31 mmol/L (21-33); CHLORIDE 101 mmol/L (95-110); GFR AFRICAN-AMERICAN > 60; GLUCOSE,RANDOM 137 mg/dL (70-110); POTASSIUM 3.7 mmol/L (3.6-5.0); SODIUM 139 mmol/L (132-148); TOTAL PROTEIN 6.2 g/dL (5.8-8.3)
[2017-04-30] MEDS: Insulin Reg-MEDIUM-Coverage SC SCH ×4 (08:44→21:42)
[2017-04-30 08:53] LABS: BODY FLUID TYPE PERITONEAL/ASCITES
[2017-04-30 09:05] LABS: BF GROSS APPEARANCE CLOUDY (CLEAR); BODY FLUID TOTAL COUNT 100 (0-0)
--- NOTE | 2017-04-30 10:59 | CP.PCM.PN ---
Subjective - Date & Time of Evaluation Date of Evaluation: 04/30/17 Time of Evaluation: 10:56 - Subjective Subjective: Progress Note for Dr. Mckeon PT S&E at bedside. KATH. Patient was given a paracentesis yesterday. Patient tolerated procedure well and states she feels a little bit better. Patient is to have an EGD today r/o esophageal varices. Patient denies F/C, N/V. Patient states she still has abdominal pain, but feels better. Objective - Vital Signs/Intake and Output Vital Signs (last 24 hours): Temp Pulse Resp BP Pulse Ox 98.6 F 78 20 125/59 L 96 04/30/17 08:57 04/30/17 08:57 04/30/17 08:57 04/30/17 10:16 04/30/17 08:57 Intake and Output: 04/30/17 04/30/17 06:59 18:59 Intake Total 2039 Balance 2039 - Medications Medications: Current Medications Albuterol/Ipratropium (Duoneb 3 Mg/0.5 Mg (3 Ml) Ud) 3 ml IH Q2H PRN PRN Reason: Shortness of Breath Albuterol/Ipratropium (Duoneb 3 Mg/0.5 Mg (3 Ml) Ud) 3 ml IH [id number] [facility] Last Admin: 04/30/17 08:17 Dose: 3 ml Amlodipine Besylate (Norvasc) 5 mg PO DAILY [facility] Last Admin: 04/30/17 10:17 Dose: 5 mg Furosemide (Lasix) 40 mg IVP DAILY [facility] Last Admin: 04/30/17 10:16 Dose: 40 mg Hydromorphone HCl (Dilaudid) 0.5 mg IVP Q4H PRN PRN Reason: Pain, moderate (4-7) Last Admin: 04/29/17 12:57 Dose: 0.5 mg Sodium Chloride (Sodium Chloride 0.9%) 1,000 mls @ 150 mls/hr IV .Q6H40M [facility] Last Admin: 04/30/17 00:45 Dose: 150 mls/hr Insulin Human Regular (Humulin R Med) 0 units SC ACHS [facility] PRN Reason: Protocol Last Admin: 04/30/17 08:44 Dose: Not Given Ondansetron HCl (Zofran Inj) 4 mg IVP Q6H PRN PRN Reason: Nausea/Vomiting Pantoprazole Sodium (Protonix Inj) 40 mg IVP DAILY [facility] Last Admin: 04/30/17 10:16 Dose: 40 mg - Labs Labs: 04/30/17 05:15 04/30/17 05:15 PT 15.8 Seconds (9.9-11.8) H 04/30/17 05:15 INR 1.46 (0.93-1.08) H 04/30/17 05:15 APTT 33.7 Seconds (23.7-30.8) H 04/29/17 03:02 - Head Exam Head Exam: ATRAUMATIC, NORMAL INSPECTION - Eye Exam Eye Exam: EOMI, Normal appearance - ENT Exam ENT Exam: Mucous Membranes Moist - Neck Exam Neck Exam: Full ROM - Respiratory Exam Respiratory Exam: NORMAL BREATHING PATTERN. absent: Accessory Muscle Use, Respiratory Distress - Cardiovascular Exam Cardiovascular Exam: REGULAR RHYTHM, +S1, +S2. absent: Bradycardia, Tachycardia - GI/Abdominal Exam GI & Abdominal Exam: Distended, Normal Bowel Sounds. absent: Firm, Guarding, Tenderness - Extremities Exam Extremities Exam: Full ROM, Normal Inspection. absent: Pedal Edema - Back Exam Back Exam: NORMAL INSPECTION - Neurological Exam Neurological Exam: Alert, Awake, Oriented x3 - Psychiatric Exam Psychiatric exam: Normal Affect, Normal Mood - Skin Skin Exam: Dry, Intact, Normal Color, Warm Assessment and Plan - Assessment and Plan (Free Text) Assessment: Dx Portal Cirrhosis/[place] Capsule stretch per Dr. Mckeon Plan: Conservative Rx only/No Surgery recommended at this time f/u EGD c/w pain management Diet: NPO for EGD. c/w current medical management Altagracia Rhodes DO PGY1
[2017-04-30] MEDS ORDERED: cefTRIAXone 1 gm 1 GM/100 ML BAG IVPB ONE (12:24)
[2017-04-30] MEDS ORDERED: Propofol 10 mg/ml Inj (20 ML) ONE (13:12)
[2017-04-30] MEDS ORDERED: cefTRIAXone (Rocephin) 1 gm Inj IVPB ONE (13:13)
[2017-04-30] MEDS ORDERED: Sodium Chloride 0.9% 250 ML IV SCH (13:30)
--- NOTE | 2017-04-30 13:44 | PN ---
SUBJECTIVE: The patient is 56 years old, seen and examined, seems to be comfortable after she had paracentesis done and the 2 L of the fluid was removed. The patient is complaining that Lasix is making her go a lot and she feels weak. She is scheduled for endoscopy today. PHYSICAL EXAMINATION: VITAL SIGNS: She is afebrile, pulse 94, respirations 16, blood pressure 162/75. LUNGS: Bilateral fair airflow. No rhonchi or crackle. HEART: S1 and S2 audible. ABDOMEN: Soft, nontender, no rebound. Her tense ascites improved. Her belly seems to be soft. NEUROLOGIC: The patient is awake and alert, able to communicate. EXTREMITIES: Bilateral leg, no edema. LABORATORY EXAM: WBC of 3.4, hemoglobin 8.2, hematocrit 26, platelet 49. PT 15.8, INR 1.46. Chemistries, sodium 139, potassium 3.7, chloride 101, CO2 of 31, BUN 15, creatinine 0.7, blood sugar of 150. ASSESSMENT: 1. Hepatitis C. 2. Cirrhosis of liver. 3. Cirrhotic ascites, status post paracentesis. 4. Gastritis. 5. History of chronic obstructive pulmonary disease. PLAN: The patient is currently on nebulizer treatment. Her blood sugar is being monitored. She is on Lasix. She is on Protonix and Rocephin. We will discontinue her IV fluid after she had endoscopy done. We will treat her if she tolerate the food. She can be discharged either tonight or tomorrow. Matheus Starkey MD
[2017-04-30] MEDS: HYDROmorphone 0.5 mg/0.5 ml ISec IVP PRN (19:49)
[2017-05-01] MEDS: Albuterol-Ipratrop 3 mg / 0.5 (3 ml) UD IH SCH ×3 (01:56→13:06)
[2017-05-01 06:23] LABS: HEMATOCRIT 29.4 % (36.0-48.0); MEAN CELL VOLUME 67.7 fl (80.0-105.0); MEAN CORPUSCULAR HEMOGLOBIN 20.7 pg (25.0-35.0); MEAN CORPUSCULAR HGB CONC 30.6 g/dl (31.0-37.0); PLATELET COUNT 58 10^3/uL (120.0-450.0); RED CELL DISTRIBUTION WIDTH 16.5 % (11.5-14.5); WHITE BLOOD COUNT 3.4 10^3/ul (4.5-11.0)
[2017-05-01 06:36] LABS: ALB/GLOB RATIO 0.9 (1.1-1.8); ALKALINE PHOSPHATASE 79 U/L (38-126); ALT/SGPT 30 U/L (7-56); AST/SGOT 24 U/L (14-36); BILIRUBIN,TOTAL 0.6 mg/dL (0.2-1.3); BLOOD UREA NITROGEN 16 mg/dL (7-21); CALCIUM 7.6 mg/dL (8.4-10.5); CARBON DIOXIDE 29 mmol/L (21-33); CHLORIDE 98 mmol/L (98-107); GFR AFRICAN-AMERICAN > 60; POTASSIUM 3.6 mmol/L (3.6-5.0); SODIUM 136 mmol/L (132-148); TOTAL PROTEIN 6.2 g/dL (5.8-8.3)
--- NOTE | 2017-05-01 06:36 | CP.PCM.PN ---
Subjective - Date & Time of Evaluation Date of Evaluation: 05/01/17 Time of Evaluation: 06:35 - Subjective Subjective: Patient was seen at bedside. Complains of pain in abdomen. All day yesterday, getting worst. No other complaints. She is S/P paracentesis on 04/29/17. This 56 year old woman was admitted with abdominal bloating. Has PMH of hepatitis C, Cirrhosis, NIDDM, obesity,COPD,HTN, appendectomy, partial colectomy,oophorectomy, cholecystectomy. Objective - Vital Signs/Intake and Output Vital Signs (last 24 hours): Temp Pulse Resp BP Pulse Ox 98 F 77 18 122/60 96 05/01/17 00:00 05/01/17 06:00 05/01/17 00:00 05/01/17 00:00 05/01/17 00:00 Intake and Output: 04/30/17 05/01/17 18:59 06:59 Intake Total 900 Balance 900 - Medications Medications: Current Medications Albuterol/Ipratropium (Duoneb 3 Mg/0.5 Mg (3 Ml) Ud) 3 ml IH Q2H PRN PRN Reason: Shortness of Breath Albuterol/Ipratropium (Duoneb 3 Mg/0.5 Mg (3 Ml) Ud) 3 ml IH [id number] [facility] Last Admin: 05/01/17 01:56 Dose: Not Given Alprazolam (Xanax) 0.25 mg PO HS [facility] PRN Reason: Protocol Stop: 05/07/17 22:01 Last Admin: 04/30/17 21:42 Dose: 0.25 mg Amlodipine Besylate (Norvasc) 5 mg PO DAILY [facility] Last Admin: 04/30/17 10:17 Dose: 5 mg Furosemide (Lasix) 40 mg IVP DAILY [facility] Last Admin: 04/30/17 10:16 Dose: 40 mg Hydromorphone HCl (Dilaudid) 0.5 mg IVP Q4H PRN PRN Reason: Pain, moderate (4-7) Last Admin: 04/30/17 19:49 Dose: 0.5 mg Insulin Human Regular (Humulin R Med) 0 units SC ACHS [facility] PRN Reason: Protocol Last Admin: 04/30/17 21:42 Dose: Not Given Ondansetron HCl (Zofran Inj) 4 mg IVP Q6H PRN PRN Reason: Nausea/Vomiting Pantoprazole Sodium (Protonix Inj) 40 mg IVP DAILY [facility] Last Admin: 04/30/17 10:16 Dose: 40 mg - Labs Labs: 05/01/17 06:00 04/30/17 05:15 PT 15.8 Seconds (9.9-11.8) H 04/30/17 05:15 INR 1.46 (0.93-1.08) H 04/30/17 05:15 APTT 33.7 Seconds (23.7-30.8) H 04/29/17 03:02 - Constitutional Appears: Well, No Acute Distress - Head Exam Head Exam: ATRAUMATIC, NORMAL INSPECTION, NORMOCEPHALIC - Eye Exam Eye Exam: Normal appearance - ENT Exam ENT Exam: Normal External Ear Exam - Neck Exam Neck Exam: Normal Inspection - Respiratory Exam Respiratory Exam: NORMAL BREATHING PATTERN - Cardiovascular Exam Cardiovascular Exam: absent: JVD - GI/Abdominal Exam GI & Abdominal Exam: Distended (Mild.), Tenderness (+), Hypoactive Bowel Sounds , Rebound (Yes.) - Rectal Exam Rectal Exam: Deferred - Exam Additional comments: Deferred. - Extremities Exam Extremities Exam: Normal Inspection - Back Exam Back Exam: NORMAL INSPECTION - Neurological Exam Neurological Exam: Alert, Oriented x3 - Psychiatric Exam Psychiatric exam: Normal Affect, Normal Mood - Skin Skin Exam: Normal Color Assessment and Plan - Assessment and Plan (Free Text) Assessment: Abdominal pain. S/P paracentesis. Hepatitis C. Cirrohosis of liver. DM II. HTN. Obesity. Plan: Dilaudid 0.[address] of abdomen and pelvis. Discussed with .
[2017-05-01] MEDS: HYDROmorphone 0.5 mg/0.5 ml ISec IVP PRN (06:39)
[2017-05-01 06:42] LABS: GLUCOSE,RANDOM 313 mg/dL (70-110)
--- NOTE | 2017-05-01 08:58 | CT ---
PROCEDURE: CT Abdomen and Pelvis without intravenous contrast HISTORY: abdominal pain, tenderness, rebound,S/P paracentes COMPARISON: Abdomen pelvis CT examination 04/29/2017. TECHNIQUE: Helical CT of the abdomen pelvis was performed without oral or intravenous contrast administered as per referring physician request.. Contrast Dose: None Radiation dose: Total exam DLP = 780 mGy-cm. This CT exam was performed using one or more of the following dose reduction techniques: Automated exposure control, adjustment of the mA and/or kV according to patient size, and/or use of iterative reconstruction technique. FINDINGS: LOWER THORAX: Diminished linear atelectasis is appreciate the right base with none identified the left. No pleural or pericardial effusions appreciated. Minimal lobular changes seen related to the right hemidiaphragm posteriorly once again. LIVER: Cirrhotic liver pattern is stable with gastrohepatic ligament, splenorenal and likely esophageal varices again identified. GALLBLADDER AND BILE DUCTS: The gallbladder is not identified once again suggesting prior cholecystectomy. A stable appearing prominent biliary tree is identified once again. Lack venous contrast limits definition of the biliary tree. PANCREAS: Unremarkable. No gross lesion or ductal dilatation. SPLEEN: An enlarged spleen again seen up to 19 cm anterior posterior dimension. ADRENALS: Unremarkable. No mass. KIDNEYS AND URETERS: Unremarkable. No hydronephrosis. No solid mass. VASCULATURE: Unremarkable. No aortic aneurysm. BOWEL: The stomach is collapsed once again is poorly evaluated secondarily. No bowel obstruction is appreciable with limited retained fecal material identified in the colon. Lack of oral contrast limits evaluation of small and large bowel overall. APPENDIX: Not identified. No definite pattern to suggest appendicitis at this time. PERITONEUM: Minimal perihepatic and lower abdomen/pelvis ascites is appreciated. LYMPH NODES: Unremarkable. No enlarged lymph nodes. BLADDER: Unremarkable. REPRODUCTIVE: Unremarkable. BONES: No acute fracture. OTHER FINDINGS: None. IMPRESSION: Unenhanced and pelvis CT reveals a minimal perihepatic and lower abdomen/ pelvis ascites with cirrhotic liver again identified with signs of portal venous hypertension again evident. Prominent splenomegaly again noted. No definite bowel or urinary tract obstruction. No free intraperitoneal gas. Lesser additional findings as discussed above.
[2017-05-01] MEDS: Insulin Reg-MEDIUM-Coverage SC SCH ×3 (09:41→16:59)
[2017-05-01 09:44] VITALS: BP 143/77
[2017-05-01 10:29] VITALS: RESP 20; TEMP 99; O2SAT 97
--- NOTE | 2017-05-01 10:31 | CP.PCM.PN ---
<Dhara Oneal - Last Filed: 05/01/17 10:38> Subjective - Date & Time of Evaluation Date of Evaluation: 05/01/17 Time of Evaluation: 08:00 - Subjective Subjective: GI PROGRESS NOTE FOR DR. PEDRO Patient seen and examined at bedside. She reports some pain in her abdomen. Earlier this morning, she complained of worsening abdominal pain. She was seen by the house doctor who gave her Dilaudid and ordered a stat CT which showed minimal perihepatic and lower abdominal/pelvic ascites with cirrhotic liver with signs of portal venous hypertension, prominent splenomegaly. No obstruction. She is tolerating her pureed/CCD diet. EGD was done yesterday. Due to her low platelets, only a diagnostic scope was done and no biopsies were taken. Objective - Vital Signs/Intake and Output Vital Signs (last 24 hours): Temp Pulse Resp BP Pulse Ox 98 F 77 18 143/77 96 05/01/17 00:00 05/01/17 06:00 05/01/17 00:00 05/01/17 09:42 05/01/17 00:00 Intake and Output: 05/01/17 05/01/17 06:59 18:59 Intake Total 900 Balance 900 - Medications Medications: Current Medications Albuterol/Ipratropium (Duoneb 3 Mg/0.5 Mg (3 Ml) Ud) 3 ml IH Q2H PRN PRN Reason: Shortness of Breath Albuterol/Ipratropium (Duoneb 3 Mg/0.5 Mg (3 Ml) Ud) 3 ml IH [id number] [facility] Last Admin: 05/01/17 08:03 Dose: 3 ml Alprazolam (Xanax) 0.25 mg PO HS [facility] PRN Reason: Protocol Stop: 05/07/17 22:01 Last Admin: 04/30/17 21:42 Dose: 0.25 mg Amlodipine Besylate (Norvasc) 5 mg PO DAILY [facility] Last Admin: 05/01/17 09:42 Dose: 5 mg Furosemide (Lasix) 40 mg IVP DAILY [facility] Last Admin: 05/01/17 09:42 Dose: 40 mg Hydromorphone HCl (Dilaudid) 0.5 mg IVP Q4H PRN PRN Reason: Pain, moderate (4-7) Last Admin: 05/01/17 06:39 Dose: 0.5 mg Insulin Human Regular (Humulin R Med) 0 units SC ACHS [facility] PRN Reason: Protocol Last Admin: 05/01/17 09:41 Dose: 7 units Ondansetron HCl (Zofran Inj) 4 mg IVP Q6H PRN PRN Reason: Nausea/Vomiting Pantoprazole Sodium (Protonix Inj) 40 mg IVP DAILY [facility] Last Admin: 05/01/17 09:41 Dose: 40 mg - Labs Labs: 05/01/17 06:00 05/01/17 06:00 PT 15.8 Seconds (9.9-11.8) H 04/30/17 05:15 INR 1.46 (0.93-1.08) H 04/30/17 05:15 APTT 33.7 Seconds (23.7-30.8) H 04/29/17 03:02 - Constitutional Appears: Non-toxic, No Acute Distress - Respiratory Exam Respiratory Exam: NORMAL BREATHING PATTERN. absent: Respiratory Distress - Cardiovascular Exam Cardiovascular Exam: +S1, +S2 - GI/Abdominal Exam GI & Abdominal Exam: Soft, Tenderness (mild tenderness) - Neurological Exam Neurological Exam: Alert, Awake - Psychiatric Exam Psychiatric exam: Anxious - Skin Skin Exam: Dry, Normal Color Assessment and Plan - Assessment and Plan (Free Text) Assessment: 56yo F with PMHx of Liver cirrhosis secondary to hepatitis C s/p Harvoni treatment, HTN, DM, seizures with Abdominal pain likely secondary to his abdominal ascites rule out SBP/rule out malignancy, Portal hypertension, Anemia , Splenomegaly, Thrombocytopenia s/p diagnostic EGD yesterday - Parasentesis done 04/29 with 2100cc straw colored fluid removed from left abdomen - EGD was done yesterday. Due to her low platelets, only a diagnostic scope was done and no biopsies were taken. Portal hypertension gastropathy and few gastric polyps were seen. There was food residue in the stomach and duodenum. - Continue PPI - Pain management - Monitor H&H and platelets - Will FU Hepatitis C PCR - Plan for repeat EGD and colonoscopy on Saturday - Patient will need platelets prior to procedure due to thrombocytopenia - Discussed plan with Dr. Mann Oneal PGY-3 <Mike Mckeon - Last Filed: 05/01/17 11:07> Objective - Vital Signs/Intake and Output Vital Signs (last 24 hours): Temp Pulse Resp BP Pulse Ox 99.0 F 102 H 20 143/77 97 05/01/17 08:00 05/01/17 10:00 05/01/17 08:00 05/01/17 09:42 05/01/17 08:00 Intake and Output: 05/01/17 05/01/17 06:59 18:59 Intake Total 900 Balance 900 - Medications Medications: Current Medications Albuterol/Ipratropium (Duoneb 3 Mg/0.5 Mg (3 Ml) Ud) 3 ml IH Q2H PRN PRN Reason: Shortness of Breath Albuterol/Ipratropium (Duoneb 3 Mg/0.5 Mg (3 Ml) Ud) 3 ml IH [id number] [facility] Last Admin: 05/01/17 08:03 Dose: 3 ml Alprazolam (Xanax) 0.25 mg PO HS [facility] PRN Reason: Protocol Stop: 05/07/17 22:01 Last Admin: 04/30/17 21:42 Dose: 0.25 mg Amlodipine Besylate (Norvasc) 5 mg PO DAILY [facility] Last Admin: 05/01/17 09:42 Dose: 5 mg Furosemide (Lasix) 40 mg IVP DAILY [facility] Last Admin: 05/01/17 09:42 Dose: 40 mg Hydromorphone HCl (Dilaudid) 0.5 mg IVP Q4H PRN PRN Reason: Pain, moderate (4-7) Last Admin: 05/01/17 06:39 Dose: 0.5 mg Insulin Human Regular (Humulin R Med) 0 units SC ACHS [facility] PRN Reason: Protocol Last Admin: 05/01/17 09:41 Dose: 7 units Ondansetron HCl (Zofran Inj) 4 mg IVP Q6H PRN PRN Reason: Nausea/Vomiting Pantoprazole Sodium (Protonix Inj) 40 mg IVP DAILY [facility] Last Admin: 05/01/17 09:41 Dose: 40 mg - Labs Labs: 05/01/17 06:00 05/01/17 06:00 PT 15.8 Seconds (9.9-11.8) H 04/30/17 05:15 INR 1.46 (0.93-1.08) H 04/30/17 05:15 APTT 33.7 Seconds (23.7-30.8) H 04/29/17 03:02 Assessment and Plan - Assessment and Plan (Free Text) Assessment: Dx HCV Cirrhossis/Varices EGD:+ Bezoar/varices Plan Repeat EGD/remove Bezoar/Colonoscopy Terrell Miralax daily Surgery not recommended R Mike MULLER FACS
[2017-05-01] MEDS ORDERED: cefTRIAXone 1 gm 1 GM/100 ML BAG IVPB ONE (12:00)
[2017-05-01 17:16] VITALS: PULSE 90
--- NOTE | 2017-05-02 03:27 | DS ---
HISTORY OF PRESENT ILLNESS: The patient is 56 years old seen and examined. The patient came in with abdominal discomfort. She was found to have tense ascites and underwent paracentesis at 21:00, 100 mL of the fluid removed, felt some better, yesterday she had endoscopy, and was found to have large basal and has been on pureed diet and started her on Reglan. The patient still complain of abdominal discomfort. She was scheduled to have colonoscopy done on Saturday because she is at high risk. Once she is given GoLYTELY, she can get dehydrated. She is thrombocytopenic because of her cirrhosis of liver and chronic hepatitis C, but because of insurance reason we are discharging the patient and has to be done as an outpatient, so the patient is going to be discharged today. She will stay on pureed diet and she will be given clear liquid over the weekend. She will be prepped on Saturday and will have colonoscopy done on Saturday as outpatient. Since the patient is at high risk, I would feel comfortable to give IV fluid because she is third spacing and she is intravascularly depleted, she can pass out and fall and might sustain fracture, so the plan is to keep her on observation, prepped her on Saturday, and had colonoscopy done on Saturday to complete her GI workup. PHYSICAL EXAMINATION: GENERAL: Today on examination, she looks okay, not in any distress. VITAL SIGNS: She is afebrile, pulse 76, respirations 20, and blood pressure 143/77. LUNGS: Bilateral fair airflow. No rhonchi or crackles. HEART: S1 and S2 audible. ABDOMEN: Soft, but she has ascites and some epigastric discomfort. NEUROLOGIC: The patient is awake, alert, and able to communicate and moves all extremities, bilateral leg no edema. LABORATORY DATA: Blood sugar is 368. Urine shows Gram-positive cocci. Blood cultures are negative. ASSESSMENT: 1. Hepatitis C. 2. Cirrhotic ascites. 3. Status post paracentesis. 4. Gastroparesis. 5. Lzl-oohagza-ivkigeemi diabetes. 6. Chronic obstructive pulmonary disease. PLAN: The patient is going to be discharge today. She will stay on pureed diet. She will be on clear liquid over the weekend and she will be coming as an observation on Saturday to be prepped and colonoscopy on Saturday. Matheus Starkey MD [facility] # [id number]
== END 2017-05-01 17:27 | disposition home or self-care (01) | DRG 433 ==
LOC: ED 02:51 → ERH 05:49 → 3RNO 07:01
PROVIDERS: ADMIT Internal Medicine; ATTEND Internal Medicine
PROC: 3E0F7GC Introduction of Other Therapeutic Substance into Respiratory Tract, Via Natural or Artificial Opening (ICD-10-PCS; 2017-04-29)
PROC: 0W9G3ZZ Drainage of Peritoneal Cavity, Percutaneous Approach (ICD-10-PCS; principal; 2017-04-29 14:00)
PROC: 0DJ08ZZ Inspection of Upper Intestinal Tract, Via Natural or Artificial Opening Endoscopic (ICD-10-PCS; 2017-04-30)
DX: K74.69 Other cirrhosis of liver (principal); R18.8 Other ascites; E11.43 Type 2 diabetes mellitus with diabetic autonomic (poly)neuropathy; K76.6 Portal hypertension; K31.84 Gastroparesis; D69.59 Other secondary thrombocytopenia; B18.2 Chronic viral hepatitis C; R56.9 Unspecified convulsions; J44.9 Chronic obstructive pulmonary disease, unspecified; I10 Essential (primary) hypertension; K29.70 Gastritis, unspecified, without bleeding; E78.5 Hyperlipidemia, unspecified; D64.9 Anemia, unspecified; R16.1 Splenomegaly, not elsewhere classified; E66.9 Obesity, unspecified; K31.7 Polyp of stomach and duodenum; K31.89 Other diseases of stomach and duodenum; Z79.84 Long term (current) use of oral hypoglycemic drugs; Z90.49 Acquired absence of other specified parts of digestive tract

== ENCOUNTER 2018-09-17 13:52 | Outpatient (CLI) | payer MEDICARE, MEDICAID | END 2018-09-17 13:53 | disposition home or self-care (01) | LOC: RAD 13:52 ==